=== PATIENT | male | born 1950 | race Caucasian/White ===

== ENCOUNTER 2016-05-15 11:00 | Emergency (ER) | payer OTHER ==
[~2016-05-15 11:00] MED LIST: ASPIRIN EC325 M2 PO; CELEBREX100 M1 PO; DOCUSATE SODIU100 M3 PO; GABAPENTIN300 M2 PO; HYDROMORPHONE HC2 M1 PO; LOSARTAN-HCTZ1 EAC1 PO; MIRALAX119 GM PO; PERCOCET 5-3251 EACH PO; RW; VALIUM10 M1 PO; VALIUM5 M2 PO; VITAMIN C1000 M4 PO; ZOFRAN ODT4 M1 SL
--- NOTE | 2016-05-15 11:31 | ED AMS/SEIZURE/WEAK/DIZZY ---
See Addendum History of Present Illness General Chief Complaint: General Adult Stated Complaint: SEIZURE Source: patient, EMS Exam Limitations: clinical condition Vital Signs & Intake/Output Vital Signs & Intake/Output ED Intake and Output 05/16 0000 05/15 1200 Intake Total 0 Output Total Balance 0 Intake, IV 0 Allergies Coded Allergies: NO KNOWN ALLERGIES (07/25/15) Reconcile Medications Ascorbic Acid (Vitamin C) 1,000 MG TABLET 1 TAB PO DAILY SUPPLEMENT (Reported ) Celecoxib (Celebrex) 100 MG CAPSULE 200 MG PO BID PAIN Diazepam (Valium) 10 MG TABLET 1 TAB PO Q8H PRN muscle spasms Docusate Sodium 100 MG CAPSULE 1 TAB PO BID STOOL SOFTENER Gabapentin 300 MG CAPSULE 1 TAB PO 7:30 AM, & 4:30 PM PAIN Gabapentin 300 MG CAPSULE 2 TAB PO QPM PAIN Hydromorphone HCl 2 MG TABLET 1-2 TAB PO Q4P PRN PAIN Losartan/Hydrochlorothiazide (Losartan-Hctz 50-12.5 MG Tab) 1 EACH TABLET 1 TAB PO DAILY BP (Reported) Polyethylene Glycol 3350 (Miralax) 17 GRAM/DOSE POWDER 1 PAC PO DAILY STOOL SOFTENER Triage Note: PT PRESENTS TO ER BY AMBULANCE FOR SEIZURE. PT POSTICTAL ON ARRIVAL IN ER. PER EMS PATIENT WAS SEATED IN PARKED CAR AND WAS WITNESSED TO HAVE A SEIZURE. PT WAS INTIALLY UNRESPONSIVE FOR EMS AND INCONTINENT OF URINE. PT BECAME MORE ALERT ENROUTE BUT STILL CONFUSED. PT HAS A HX OF AFIB AND SEIZURES. PT CHANGED INTO GOWN ON ARRIVAL Triage Nurses Notes Reviewed? yes HPI: This patient is a 66-year-old male the past medical history including atrial fibrillation and seizure disorder presented to the emergency department today brought in by ambulance after he was witnessed by a bystander to be having a seizure while seated in the rail car driver seat of his car, parked. EMS reported that the patient was found to be post ictal. He was incontinent of urine, but not stool. The patient did not remember the incident. The patient is currently a poor historian due to his current clinical state and also general noncompliance. The patient reported multiple times, "I would like to stand up and I would like to talk to my mother." The patient reported that he does not know what the last thing he remembers is. He does not remember getting up this morning. He does not remember getting his car. He does not remember having the seizure. The patient denied any headaches, visual changes, dizziness, lightheadedness, chest pain, difficulty breathing, abdominal pain, nausea, back pain, or any numbness or tingling in his extremities. Past History Travel History Traveled to [place] past 21 day No Medical History Any Pertinent Medical History? 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 No Review of Systems Review of Systems Constitutional: Reports: no symptoms. EENTM: Reports: no symptoms. Respiratory: Reports: no symptoms. Cardiovascular: Reports: no symptoms. GI: Reports: no symptoms. Genitourinary: Reports: see HPI. Musculoskeletal: Reports: no symptoms. Skin: Reports: no symptoms. Neurological/Psychological: Reports: see HPI. All Other Systems: Reviewed and Negative Physical Exam Physical Exam General Appearance: well developed/nourished, no apparent distress, alert, awake Comments: Well-developed well-nourished person in no acute distress HEENT: Normal EENT exam, head normocephalic/atraumatic. No bony deformity/step- off of the skull, no tenderness to palpation of the scalp, moist mucous membranes PERRLA bilaterally. EOMI bilaterally with no nystagmus Nose is atraumatic. No evidence of trauma to the tongue Neck: Supple, no lymphadenopathy, full range of motion Back: Normal inspection Cardiovascular: Tachycardic with a regular rhythm and no murmurs, rubs, or gallops. No carotid bruits Respiratory: Chest nontender. No respiratory distress. Breath sounds clear to auscultation bilaterally with no wheezes, rales, rhonchi Abdomen: Soft, nontender and nondistended with no rebound or guarding. No peritoneal signs Extremity: Normal and equal pulses. Neuro: Alert oriented x3, motor sensory normal, cranial nerves II through XII grossly intact. No aphasia. No facial droop. No unilateral weakness. No pronator drift. 5 out of 5 muscular strength in all extremities Skin: No appreciable rash on exposed skin, skin is warm and dry. Psych: Mood and affect is irritable, memory and judgment is poor Core Measures ACS in differential dx? Yes CVA/TIA Diagnosis: No Severe Sepsis Present: No Septic Shock Present: No Progress Differential Diagnosis: arrythmia, alcohol intoxication, anemia, benign positional vertigo, CVA/stroke, dehydration, drug intoxication, encephalitis, electrolyte imbalance, GI bleed, hypoglycemia, hypoxia, intracranial Hem., intracranial mass/tumor, multiple sclerosis, postural hypotension, presyncope, sepsis, seizure disorder, subarachnoid Hem., UTI/pyelo, vertebrobasilar insuff Plan of Care: Orders Procedure Date/time Status URINALYSIS 05/15 1132 Active TROPONIN LEVEL 05/15 1132 Active PROLACTIN 05/15 1132 Active COMPREHENSIVE METABOLIC PANEL 05/15 1132 Active CBC WITHOUT DIFFERENTIAL 05/15 1132 Active EKG 05/[address] HEAD WO IV CONTRAST 05/15 113 Active Initial ED EKG: patient refused Comments: 05/15/2016 11:44:40 AM: The patient is insisting to go home. He has gotten up and began to put on his clothes. The nurse explained to him that he stay for evaluation and due to his confusion, he is incompetent to make medical decisions at this time. The patient began to get agitated and raised his voice. The patient stated, "I am leaving this is not a fpc." The patient is refusing to let us speak to any of his family members and will not give us the numbers for his or his mother. Security is currently at the patient's bedside. I spoke to Dr. Menjivar about this. He stated that because the patient is not competent to make medical decisions due to his likely post ictal state, he should not be allowed to leave at this time. The patient's behavior is beginning to escalate. 05/15/2016 11:55:36 AM: Dr. Menjivar was at the patient's bedside [id number] evaluation. He had an extensive conversation with this patient. Ultimately recommending that this patient can go home. This patient signed a form stating that he was leaving AGAINST MEDICAL ADVICE. I explained this patient multiple times the importance of staying here in the emergency department for evaluation for likely seizure as he had urinary incontinence, a history of seizures, and is currently postictal. However, the patient is adamantly refusing to stay. Departure Departure Disposition: LEFT AGAINST MEDICAL ADVICE Condition: Stable Clinical Impression Primary Impression: Seizure Referrals: MAURICIO COATES,BILLIE Gallardo (PCP/Family) Additional Instructions: Please follow-up with your primary care physician. Return for any worsening symptoms or concerns. Departure Forms: Customer Survey General Discharge Information
[2016-05-15 11:33] VITALS: BP 148/103
[2016-09-11] MEDS ORDERED: LOSARTAN/HCTZ (14:49)
[2016-09-11] MEDS ORDERED: ASPIRIN325 M2 PO (14:49)
== END 2016-05-15 12:06 | disposition left against medical advice (07) ==
LOC: ERH 11:00
DX: R56.9 Unspecified convulsions (principal)

== ENCOUNTER 2016-09-19 02:16 | Inpatient (IN) | payer OTHER ==
--- NOTE | 2016-09-17 16:22 | History & Physical Pre-Op ---
General Information and HPI MD Statement: I have seen and personally examined JAY SWAIN and documented this H& P. The patient is a 66 year old M who presented with a patient stated chief complaint of [lower back pain and left leg pain and numbness]. Source of Information: patient Exam Limitations: no limitations History of Present Illness: 66-year-old right-handed gentleman who initially presented in July 2015 laminectomy of L2-3 using 344 right facet cyst and left partial medial facetectomy with bilateral foraminotomies for thigh pain He did well for 4 months ago developed severe radicular pain and diagnosed as having a herniated disc at L2-3. For symptoms of pain and weakness and cauda equina irritation. Did well for the worse and it was found to have a dural tear in March. His complaint is of excruciating mechanical back pain which is mostly resolved with the aid of a very tight lumbar brace. He is, complaints of numbness down his thigh and the anterior aspect of his calf on the left which turns to pain when he is standing up limiting his ambulation. He also has weakness of the foot and often trips because of left foot weakness. His pain is worse with activity bending sitting standing and walking and is improved with rest and medication. He complains of weakness numbness and tingling down his left leg. Allergies/Medications Allergies: Coded Allergies: NO KNOWN ALLERGIES (07/25/15) Home Med list Aspirin (Aspirin*) 325 MG TABLET 1 TAB PO DAILY PROPHO (Reported) [LOSARTAN/HCTZ] HTN (Reported) Compliance With Home Meds: UNKNOWN Past History Medical History Any Pertinent Medical History? 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 Home Who Do You Live With? spouse Services at Home None Primary Language: Greenlandic Smoking Status: Former Smoker ETOH Use: denies use Illicit Drug Use: denies illicit drug use Living Will? 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 unknown Name of POA/HCP: unknown Other Social History: Not relevant Functional Ability ADLs Independent: dressing, eating, toileting, bathing. Ambulation: cane IADLs Independent: shopping, housework, finances, food prep, telephone, transportation , medication admin. 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 EENTM: Denies: no symptoms. Cardiovascular: Denies: no symptoms. Respiratory: Denies: no symptoms. GI: Denies: no symptoms. Genitourinary: Denies: no symptoms. Musculoskeletal: Reports: see HPI. Skin: Denies: no symptoms. Neurological/Psychological: Reports: see HPI. Hematologic/Endocrine: Denies: no symptoms. Immunologic/Allergic: Denies: no symptoms. All Other Systems: Reviewed and Negative Colonoscopy Testing Status: Unknown if test ever done Comments Patient has had also physical therapy which failed to resolve symptoms Exam & Diagnostic Data Last 24 Hrs of Vital Signs/I&O he stands 6 foot 4 and weighs 220 pounds Physical Exam: He has a well-healed midline scar in his lumbar area. No clear-cut evidence of fluid collection under the skin. Given excellent range of forward bending slight limitation of hyperextension His gait moderately favors his left leg. He has difficulty keeping his knee locks in his foot does not completely clear floor. He is unable to stand on tiptoes or heels. He has a 0.4 inch difference in size of his thigh on the left compared to the right though it does look more atrophic. He has weakness of abduction adduction in iliopsoas and 3 over 5 on the left. His formal 5 quadriceps 4 over 5 extensor hallucis longus anterior tibialis on the left. He has decreased sensation from L2 to L5 on the left. The right leg appears to be very strongly toes are different. He has 1+ knee jerk bilaterally 2+ ankle jerks toes are downgoing. 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 S/P lumbar laminectomy 2. Seizure Copies To: VERONICA COATES,SRIDEVI Carpenter
[~2016-09-19] VITALS: Ht 185.4 cm; Wt 95.3 kg
[~2016-09-19 02:16] MED LIST changes: +ASPIRIN325 M2 PO; +LOSARTAN/HCTZ
--- NOTE | 2016-09-19 14:43 | Operative Report ---
Operative/Inv Procedure Report Surgery Date: 09/19/16 Name of Procedure: #1 bilateral revision hemilaminectomies L2 3 #2 neurolysis left side at L2-3 #3 exploration for CSF leaknegative #4 total facetectomy left side at L2-3 #5 preparation of space for fusion L2-3 #6 reconstitution of graft material #7 insertion of TL ORIF fuse cage L2-3 right side of #8 stealth registration #9 stealth guided pedicle crew screw insertion L2-L3 bilateral #10auto and allograft arthrodesis bilateral L2-3 Pre-Operative Diagnosis: Instability L2-3 Recurrent disc L2-3 left-sided Possible pseudomeningocele L2-3 Post-Operative Diagnosis: Instability L2-3 Estimated Blood Loss: 900cc Surgeon/Diet Clerk: Gulshan Harris M.D.(co-surgeon) Anesthesia: general endotracheal tube Monitors: Neurophysiology IV Fluids: D5 normal Implants: Medtronic fuse cage and pedicle screws of the SOLARA system Urine Output: Satisfactory Drains: 2 Rony Hallie Specimens: H&P Microbiology: None Tourniquet: None Complications: None Condition: Stable Operative Indication: 66-year-old man on his third post surgical intervention he had developed initially a synovial cyst for which she underwent a laminectomy following which she developed a herniated disc which required laminectomy at the end of which she was noted to have a possible CSF leak since that point in time he has had left leg pain and very definite mechanical back pain making him dependent on his brace Indication for surgery alternative risks and possible complications were discussed at length. The fear was that he had developed a moderate a pseudomeningocele as well as a recurrent disc at the L2-3 space Operative/Procedure Note Note: The patient was brought to the operating room intubated supine received 2 g of intravenous about ox was then placed prone on the Rony table his back was prepped and draped in usual sterile manner and infiltrated with marked Xylocaine and epinephrine Sharp dissection was carried L3 to previous incision down to the aponeurosis. A condyle both sides of the midline at the level of L1 and L4 dissection was carried down to the lamina of L2 was identified as well as the lamina of L4 and a 60 tedious takedown of the midline scar or then took place once the edges of the previous laminectomy had been identified as to 3 After identifying the medial edges of the facets or was left of the facets a complete facetectomy was then accomplished on the left-hand side after dissecting down onto the transverse processes of L2 and L3 this required a tedious neurolysis through the scarring until identification of the various nerve roots An extensive dissection was made at that point searching for a recurrent disc the disc space was entered and this was confirmed by C-arm films but after passing [place] 4, [place], and Kimberlyn curettes, no active recurrent disc was found just scarring The foramen they were widely open in the process of removing the remainder of the facet on that side A reaming lamina on the left was present and a complete removal of this lamina by laminectomy was then performed attention was then directed to the right hand side were likewise a remainder of lamina was present and a full revision hemilaminectomy accomplished removing the remainder of that lamina a wider opening of the facet was then performed on the right-hand side was removal of the remainder of ligamentum flavum and scar us a neurolysis was also accomplished on the right-hand side Once the space was identified and the vessels cauterized by Sridevi Harris MD proceeded to perform the fusion with an interbody F UAC cage at that level packed with autologous bone after packing the space with DBF graft on it then proceeded to registered and Stealth devices and place pedicle screws at L2 and L3 bilaterally after an O arm had obtained a map that could be conjoined with the Stealth device Following that the transverse processes and medial aspect and lateral aspect of the facets were drilled down and a combination of autologous bone and DBF was used to provide an arthrodesis in the lateral gutter extending from the process of 2-3 Following this to large Rony Hallie were left in the epidural space the muscle was closed in depth with 0-0 Dexon muscle and aponeurosis were closed with 0 Dexon subcutaneous tissue was closed with 2-0 Dexon subcuticular tissue with 3-0 Dexon and the skin closed with stainless steel margarito a full dressing was applied and the patient was in satisfactory condition upon removal to the recovery room Findings: Neurophysiological recordings remained stable throughout both sensory and motor It is to be noted that no recurrent disc was found. It is to be noted that there was no pseudomeningocele nose area evidence of dural tear Discharge Disposition: PACU Additional Comments: Recording stable CC: VERONICA COATES,SRIDEVI Carpenter
--- NOTE | 2016-09-19 15:06 | RADIOLOGY REPORT ---
EXAMINATION: XR LUMBOSACRAL SPINE CLINICAL INFORMATION: L2-L3 bilateral revision hemilaminectomy with C-arm and O-arm in OR COMPARISON: 07/30/2016 TECHNIQUE: Intraoperative C-arm and O-arm assistance was provided to Dr. Harris in the operating room during lumbar surgery. Multiple spot images were saved. Total fluoroscopic time 0.4 seconds and 10.83 seconds. FINDINGS: These nondiagnostic images demonstrate level localization in the lumbar spine and later hardware at the level of L2-L3. IMPRESSION: Intraoperative images during lumbar surgery. Please see procedure note for full details.
[2016-09-19 20:00] VITALS: BP 160/104
[2016-09-19 21:00] VITALS: BP 148/76
--- NOTE | 2016-09-19 23:06 | PN- Orthopedic ---
Subjective Subjective: POST-OP NOTE: Denies pain. Sitter requested for confusion. Denies nausea. No shortness of breath. No chest pains. Objective Vital Signs and I&Os Vital Signs Date Time Temp Pulse Resp B/P B/P Pulse O2 O2 Flow FiO2 Mean Ox Delivery Rate 09/19 2099 98.8 96 16 148/76 94 Room Air 09/20 1999 90 160/104 Physical Exam: General - alert. comfortable. no acute distress Lungs - clear bilaterally. no w/r/r Cardiac - s1s2 Abdomen - soft. nontender. Back - dressing c/d/i. RESHMA drains x 2 with serosang drainage - ovalle draining clear, yellow urine Extremities - warm bilaterally. no c/c/e. calves soft and nontender b/l. athrombics active b/l. 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 No Antibiotics Is Patient on Antibiotics? Yes If Yes: prophylaxis
[2016-09-19 23:07] VITALS: BP 138/78
--- NOTE | 2016-09-20 01:13 | NUR ---
PT EXREMELY AGITED AND LOUD REQUESTING TO GO TO THE BATHROOM TO VOID. EXPLAINED THAT HE HAS A BENTON IN PLACE. PT IGNORED STAFF AND GOT UP PULLING HIS OUT AND TUGGING AT HIS BENTON AND RESHMA DRAINS. PT PROCEEDED TO GET UP 3 MORE TIMES. BENTON WAS REMOVED AND URINAL WAS PROVIDED. WILL CONTINUE TO MONITOR. SITTER AT BEDSIDE
[2016-09-20 01:17] VITALS: BP 160/80
[2016-09-20 05:00] VITALS: BP 134/80
[2016-09-20] MEDS ORDERED: LOSARTAN-HCTZ1 EAC1 PO (07:40)
[2016-09-20 08:27] LABS: ABSOLUTE BASOPHIL COUNT 0 /CUMM (0.0-0.2); ABSOLUTE EOSINOPHIL COUNT 0 /CUMM (0.0-0.7); ABSOLUTE GRANULOCYTE CT 14.3 /CUMM (1.4-6.5); ABSOLUTE LYMPH COUNT 1.1 /CUMM (1.2-3.4); ABSOLUTE MONOCYTE COUNT 1.2 /CUMM (0.10-0.60); BASOPHIL % 0 % (0.0-2.0); EOSINOPHIL % 0 % (0-5); GRANULOCYTE % 86.4 % (42.2-75.2); HEMATOCRIT 38.9 % (42-52); MEAN CORPUSCULAR HGB CONC 33.4 G/DL (33.0-37.0); MEAN CORPUSCULAR VOLUME 92.9 FL (80.0-94.0); PLATELET COUNT 126 /CUMM (130-400); RBC DISTRIBUTION WIDTH 15.1 % (11.5-14.5); RED BLOOD CELL CT 4.19 /CUMM (4.70-6.10)
[2016-09-20 09:19] LABS: WHITE BLOOD CELL COUNT 16.5 /CUMM (4.8-10.8)
--- NOTE | 2016-09-20 11:02 | Admission Core Measures ---
Admission Lab Results I reviewed the following labs: Laboratory Tests 09/20 0600 Chemistry Sodium (137 - 145 mmol/L) 138 Potassium (3.5 - 5.1 mmol/L) 4.2 Chloride (98 - 107 mmol/L) 102 Carbon Dioxide (22 - 30 mmol/L) 28 Anion Gap (5 - 16) 9 BUN (9 - 20 mg/dL) 11 Creatinine (0.7 - 1.2 mg/dL) 0.7 Estimated GFR (>60 ml/min) > 60 BUN/Creatinine Ratio (7 - 25 %) 15.7 Hematology CBC w Diff NO MAN DIFF REQ WBC (4.8 - 10.8 /CUMM) 16.5 H RBC (4.70 - 6.10 /CUMM) 4.19 L Hgb (14.0 - 18.0 G/DL) 13.0 L Hct (42 - 52 %) 38.9 L MCV (80.0 - 94.0 FL) 92.9 MCH (27.0 - 31.0 PG) 31.0 RDW (11.5 - 14.5 %) 15.1 H Plt Count (130 - 400 /CUMM) 126 L MPV (7.4 - 10.4 FL) 12.0 H Gran % (42.2 - 75.2 %) 86.4 H Lymphocytes % (20.5 - 51.1 %) 6.5 L Monocytes % (1.7 - 9.3 %) 7.1 Eosinophils % (0 - 5 %) 0 Basophils % (0.0 - 2.0 %) 0 L Absolute Granulocytes (1.4 - 6.5 /CUMM) 14.3 H Absolute Lymphocytes (1.2 - 3.4 /CUMM) 1.1 L Absolute Monocytes (0.10 - 0.60 /CUMM) 1.2 H Absolute Eosinophils (0.0 - 0.7 /CUMM) 0 Absolute Basophils (0.0 - 0.2 /CUMM) 0 PUBS MCHC (33.0 - 37.0 G/DL) 33.4 Admission Meds I reviewed the following Meds: Current Medications Sig/Arturo Start time Last Medication Dose Stop Time Status Admin Dextrose/Sodium 1,000 ML .[id number] 09/19 1815 AC 09/20 Chloride 0606 (D5W-1/2 Normal Saline 1000ML) Diazepam 5 MG TID PRN 09/20 0915 AC 09/20 (Valium) 0908 Hydrochlorothiazide 12.5 MG DAILY 09/20 1000 AC 09/20 (Hydrodiuril) 0910 Hydromorphone HCl 1 MG Q2-3 HRS NEEDED.. 09/20 0900 AC 09/20 (Dilaudid) 1004 Ketorolac 30 MG BID 09/20 1000 AC 09/20 Tromethamine 09/21 1001 0911 (Toradol) Losartan Potassium 50 MG DAILY 09/20 1000 AC 09/20 (Cozaar) 0911 Ondansetron HCl 4 MG Q8P PRN 09/19 1815 AC (Zofran) Oxycodone/ 1 TAB Q4P PRN 09/20 09 AC Acetaminophen (Percocet) Oxycodone/ 2 TAB Q4P PRN 09/20 0900 AC 09/20 Acetaminophen 0909 (Percocet) Acute Coronary Syndrome Inclusion Criteria ACS Diagnosis No Inpatient Core Measures LDL Reminder: If No, please order W/I first 24hr of stay Congestive Heart Failure Inclusion Criteria CHF Diagnosis No Cerebrovascular accident Inclusion Criteria CVA/TIA Diagnosis No Inpatient Core Measures Bedside Swallow Eval Reminder: If BSE failed, place ST order Antithrombotic Reminder: Order Antithrombotic Medication by end of day 2 Antithrombotic Reminder: Document Reason Antithrombotic Not ordered by end of day 2 AFIB/Flutter Reminder: If Present, add to problem list AFIB/Flutter Reminder: Order Anticoag Medication for pts with AFIB/Flutter Atherosclerosis Reminder: If Present, add to problem list LDL Reminder: If No, please order W/I first 24hr of stay PT Order Reminder: If No, please order Venous thromboembolism Inpatient Core Measures VTE Risk Factors: Age > 40, Surgery No [facility] VTE prophylaxis d/t No contraindications No VTE Pharm Prophylaxis d/t No contraindications Inclusion Criteria - Per Current guidelines, there needs to be overlap - treatment for the first 5 days of Warfarin therapy. - Parenteral Anticoagulation (IV or SC) needs to be - given along with Warfarin therapy. VTE Diagnosis No VTE Type NONE VTE Confirmed by (Test) NONE Problem List As ranked by this Provider includes Assessment & Plan 1. S/P lumbar laminectomy HOME MEDS Home Med List Aspirin (Aspirin*) 325 MG TABLET 1 TAB PO DAILY PROPHO (Reported) Losartan/Hydrochlorothiazide (Losartan-Hctz 50-12.5 MG Tab) 50 MG-12.5 MG TABLET 1 TAB PO DAILY HTN (Reported)
--- NOTE | 2016-09-20 11:07 | PN- Orthopedic ---
Subjective Subjective: pod#1 lumbar laminectomy no major issues ovenight denies cp, sob, no n+v with diet voiding independently Objective Vital Signs and I&Os Vital Signs Date Time Temp Pulse Resp B/P B/P Pulse O2 O2 Flow FiO2 Mean Ox Delivery Rate / 0911 103 170/100 06/ 0500 99.4 113 20 134/80 99 Room Air 09/20 0117 99.3 103 20 160/80 97 Room Air 09/19 2307 98.2 87 14 138/78 96 Room Air / 2100 98.8 96 16 148/76 94 Room Air / 2000 90 160/104 Intake & Output 09/20 1600 09/20 0800 09/20 0000 09/19 1600 09/19 0800 09/19 0000 Intake Total 600 225 Output Total 1340 2650 Balance -740 -2425 Intake, IV 600 225 Output, 90 50 Drainage Output, Urine 1250 2600 Physical Exam: cv; rrr lungs: clear abd: soft, +bs ext: 4/5 left le ehl/dorsiflexion distal sensory intact dp/pt pulses intact collins: moderate sanguinous output Assessment/Plan Assessment/Plan ortho stable plan d/c balancing machine set up worker cont iv abx until drain d/c oob/ambulate w/ or w/o brace home d/c planning Core Measures/Miscellaneous Venous Thromboembolism VTE Risk Factors: Age > 40, Surgery VTE Contraindications: No Contraindications VTE Diagnosis: No VTE Type: NONE VTE Confirmed by (Test): NONE Beta Leonard Is Beta Leonard a Home Med? No Antibiotics Is Patient on Antibiotics? Yes If Yes: prophylaxis
--- NOTE | 2016-09-20 12:22 | PN- Neurosurgical ---
Surgical Brief Attending Note Brief Attending Note: POD#1 avss expected LBP drains functioning well resolution of preop sciatica able to stand on left leg stronger foot doing well increase PT
[2016-09-20 13:52] VITALS: BP 140/80
--- NOTE | 2016-09-20 14:35 | NUR ---
PT NO LONGER CONFUSED, AO, RA, OOB INDEPENDENTLY, NO LONGER NEEDS PATIENT SAFETY MONITOR. PA POP AWARE, PSM D/C. PT ASLEEP, CALL LINARES WITHIN REACH.
[2016-09-20 22:03] VITALS: BP 142/82
[2016-09-21 06:26] VITALS: BP 120/70
--- NOTE | 2016-09-21 09:07 | PN- Orthopedic ---
Subjective Subjective: Walking in fatima. LLE pain persists, but improved. No other complaints. attending here this am, removed drains. Objective Vital Signs and I&Os Vital Signs Date Time Temp Pulse Resp B/P B/P Pulse O2 O2 Flow FiO2 Mean Ox Delivery Rate 09/21 0626 98.9 89 20 120/70 97 Room Air 09/20 2203 99.0 79 18 142/82 97 Room Air 09/20 1352 98.7 100 18 140/80 97 Room Air 09/20 0911 103 170/100 Intake & Output 09/21 1600 09/21 0800 09/21 0000 09/20 1600 09/20 0809/20 0000 Intake Total 240 120 960 600 225 Output Total 360 834 480 5621 2650 Balance -120 5 820 -740 -2425 Intake, IV 600 600 225 Intake, Oral 240 120 360 Output, 60 115 140 90 50 Drainage Output, Urine 300 1250 2600 Physical Exam: General - NAD Lungs - CTAB Cardiac - s1s2 RRR Back - dressing c/d/i. RESHMA drains out. Extremities - no edema, calves soft nt bl Current Medications: Current Medications Sig/Arturo Start time Last Medication Dose Route Stop Time Status Admin Cefazolin Sodium 2 GM IQ8 09/20 1929 DC N/A 1 UNIT IV Cefazolin Sodium 2 GM Q8H 09/20 1929 AC 09/21 N/A 1 UNIT IV 0324 Dextrose/Sodium 1,000 ML .[id number] 09/19 1815 DC 09/20 Chloride IV 06 Diazepam 5 MG TID PRN 09/20 0915 AC 09/20 PO 0908 Hydrochlorothiazide 12.5 MG DAILY 09/20 1000 AC 09/20 PO 0910 Hydromorphone HCl 1 MG Q2-3 HRS NEEDED.. 09/20 09 AC 09/21 IV 0634 Ketorolac 30 MG BID 09/20 1000 AC 09/20 Tromethamine IV 09/21 1001 2142 Losartan Potassium 50 MG DAILY 09/20 1000 AC 09/20 PO 0911 Ondansetron HCl 4 MG Q8P PRN 09/19 1815 AC IV Oxycodone/ 1 TAB Q4P PRN 09/20 09 AC Acetaminophen PO Oxycodone/ 2 TAB Q4P PRN 09/20 09 AC 09/21 Acetaminophen PO 0800 Results Last 48 Hours of Labs: Laboratory Tests 06/10 0600 Chemistry Sodium (137 - 145 mmol/L) 138 Potassium (3.5 - 5.1 mmol/L) 4.2 Chloride (98 - 107 mmol/L) 102 Carbon Dioxide (22 - 30 mmol/L) 28 Anion Gap (5 - 16) 9 BUN (9 - 20 mg/dL) 11 Creatinine (0.7 - 1.2 mg/dL) 0.7 Estimated GFR (>60 ml/min) > 60 BUN/Creatinine Ratio (7 - 25 %) 15.7 Hematology CBC w Diff NO MAN DIFF REQ WBC (4.8 - 10.8 /CUMM) 16.5 H RBC (4.70 - 6.10 /CUMM) 4.19 L Hgb (14.0 - 18.0 G/DL) 13.0 L Hct (42 - 52 %) 38.9 L MCV (80.0 - 94.0 FL) 92.9 MCH (27.0 - 31.0 PG) 31.0 RDW (11.5 - 14.5 %) 15.1 H Plt Count (130 - 400 /CUMM) 126 L MPV (7.4 - 10.4 FL) 12.0 H Gran % (42.2 - 75.2 %) 86.4 H Lymphocytes % (20.5 - 51.1 %) 6.5 L Monocytes % (1.7 - 9.3 %) 7.1 Eosinophils % (0 - 5 %) 0 Basophils % (0.0 - 2.0 %) 0 L Absolute Granulocytes (1.4 - 6.5 /CUMM) 14.3 H Absolute Lymphocytes (1.2 - 3.4 /CUMM) 1.1 L Absolute Monocytes (0.10 - 0.60 /CUMM) 1.2 H Absolute Eosinophils (0.0 - 0.7 /CUMM) 0 Absolute Basophils (0.0 - 0.2 /CUMM) 0 PUBS MCHC (33.0 - 37.0 G/DL) 33.4 Assessment/Plan Assessment/Plan A: 66M POD2 sp L2-3 lami/fusion revision, persistant pain but improving. P: reg diet pain meds as ordered Dc ancef as JPs are out. OOB, ambulate, DVT ppx Dc planning Core Measures/Miscellaneous Venous Thromboembolism VTE Risk Factors: Age > 40, Surgery VTE Contraindications: No Contraindications VTE Diagnosis: No VTE Type: NONE VTE Confirmed by (Test): NONE Beta Leonard Is Beta Leonard a Home Med? No Antibiotics Is Patient on Antibiotics? Yes If Yes: prophylaxis
--- NOTE | 2016-09-21 11:37 | Patient Discharge Instructions ---
Discharge Instructions General Discharge Information You were seen/treated for: Instability L2-3 Recurrent disc L2-3 left-sided Possible pseudomeningocele L2-3 You had these procedures: #1 bilateral revision hemilaminectomies L2 3 #2 neurolysis left side at L2-3 #3 exploration for CSF leaknegative #4 total facetectomy left side at L2-3 #5 preparation of space for fusion L2-3 #6 reconstitution of graft material #7 insertion of TL ORIF fuse cage L2-3 right side of #8 stealth registration #9 stealth guided pedicle crew screw insertion L2-L3 bilateral #10auto and allograft arthrodesis bilateral L2-3 Watch for these problems: wounds drainage/redness, worsening pain, motor or sensory changes in extremities No bath, but you may shower: Yes Other wound care: Keep wound clean and dry. No topical medications. May apply clean dry gauze dressing as needed. Diet Continue normal diet: Yes Recommended Diet: Regular Activity Activity Self Limited: Yes Activity Limited to: Weight bear as tolerated Other activity limits: Use assitive devices as needed Acute Coronary Syndrome Inclusion Criteria At DC or during hospital stay patient has or had the following: ACS DIAGNOSIS No Discharge Core Measures Meds if any: Prescribed or Continued at Discharge Meds if any: NOT Prescribed or Continued at Discharge Congestive Heart Failure Inclusion Criteria At DC or during hospital stay patient has or had the following: CHF DIAGNOSIS No Discharge Core Measures Meds if any: Prescribed or Continued at Discharge Meds if any: NOT Prescribed or Continued at Discharge Cerebrovascular accident Inclusion Criteria At DC or during hospital stay patient has or had the following: CVA/TIA Diagnosis No Discharge Core Measures Meds if any: Prescribed or Continued at Discharge Meds if any: NOT Prescribed or Continued at Discharge Venous thromboembolism Inclusion Criteria VTE Diagnosis No VTE Type NONE VTE Confirmed by (Test) NONE Discharge Core Measures - Per Current guidelines, there needs to be overlap - treatment for the first 5 days of Warfarin therapy. - If discharged on Warfarin prior to 5 days of - overlap therapy, the patient will need to be - assessed for post discharge needs including - *Post discharge parental anticoagulation - *Warfarin and/or parental anticoagulation education - *Follow up date to check INR post discharge At least 5 days overlap therapy as Inpatient No Meds if any: Prescribed or Continued at Discharge Note: Overlap Therapy is Warfarin and Anticoagulant Meds if any: NOT Prescribed or Continued at Discharge
--- NOTE | 2016-09-21 11:46 | Surgical Discharge Summary ---
Visit Information Visit Dates Admission Date: 09/19/16 Discharge Date: 09/22/16 History of Present Illness Chief Complaint: 66yo M presented 09/19/16 for elective revision of L2-3 laminectomy/fusion. His initial procedure was in July 2015. Medical History Any Pertinent Medical History? 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 Home Services at Home: None What is Your Primary Language? Swedish ETOH Use: denies use Other Addictive Behavior: Not relevant Review of Systems: see H&P Hospital Course Course Attending Physician: VERONICA COATES,SRIDEVI Carpenter Primary Care Physician: MAURICIO COATES,BILLIE Gallardo Hospital Course: Elective surgery on 09/19/16. procedure included: #1 bilateral revision hemilaminectomies L2 3 #2 neurolysis left side at L2-3 #3 exploration for CSF leaknegative #4 total facetectomy left side at L2-3 #5 preparation of space for fusion L2-3 #6 reconstitution of graft material #7 insertion of TL ORIF fuse cage L2-3 right side of #8 stealth registration #9 stealth guided pedicle crew screw insertion L2-L3 bilateral #10auto and allograft arthrodesis bilateral L2-3 Procedure was performed by Drs. Harris and Lisa without complications. Postoperatively, patient was evaluated and treated by PT. At time of discharge, pain is controlled with PO pain meds, vital signs are stable, and he is tolerating regular diet. Allergies: Coded Allergies: NO KNOWN ALLERGIES (07/25/15) Significant Procedures: See operative report Disposition Summary Disposition Principal Diagnosis: Instability L2-3 Additional Diagnosis: same, s/p bilateral revision hemilaminectomies L2-3, neurolysis left side at L2- 3, exploration for CSF leaknegative, total facetectomy left side at L2-3, preparation of space for fusion L2-3, reconstitution of graft material, insertion of TL ORIF fuse cage L2-3 right side, stealth registration, stealth guided pedicle crew screw insertion L2-L3 bilateral, auto and allograft arthrodesis bilateral L2-3 Discharge Disposition: home health services Discharge Instructions General Discharge Information Code Status: Full Code Patient's Diet: regular Patient's Activity: as tolerated, use assistive equipment as needed Follow-Up Instructions/Appts: Call Dr. Harris's office to be seen 1-2 weeks from date of surgery. Medications at Discharge Discharge Medications: Stop taking the following medications: Aspirin (Aspirin*) 325 MG TABLET ORAL DAILY Continue taking these medications: Losartan/Hydrochlorothiazide (Losartan-Hctz 50-12.5 MG Tab) 50 MG-12.5 MG TABLET 1 Tablet ORAL DAILY Qty = 90 Start taking the following new medications: Hydromorphone HCl (Dilaudid) 2 MG TABLET 1-2 Tablet ORAL EVERY 8 HOURS NEEDED as needed for PAIN Qty = 20 No Refills Oxycodone HCl/Acetaminophen (Percocet 5-325 MG Tablet) 5 MG-325 MG TABLET 1-2 Tablet ORAL EVERY 4 HOURS NEEDED as needed for PAIN Qty = 60 No Refills Diazepam (Valium) 5 MG TABLET 1-2 Tablet ORAL EVERY 8 HOURS NEEDED as needed for SPASMS Qty = 10 No Refills Celecoxib (Celebrex) 200 MG CAPSULE 1 Capsule ORAL TWICE DAILY Qty = 30 No Refills
[2016-09-21 18:30] VITALS: BP 178/100
--- NOTE | 2016-09-21 19:00 | NUR ---
I HEARD A LOUD CRASH COMING FROM ROOM 221. ON ARRIVING TO THE ROOM PATIENT WAS SEEN ON FLOOR CLOSE TO THE BATHROOM. WHEN QUESTIONED PATIENT STATED HE WENT TO THE BATHROOM AND CAME BACK. TRIPPED AND FELL. HE DENIES HITTING HIS HEAD. PATIENT ALERT AND APPEARS DISORIENTATED DURING ASSESSMENT. RAPID RESPONSE TEAM CALLED. BP178/100, HR 110. PATIENT S/P LUMBAR GALLARDO L1 L2. PA CALLED. PATIENT WAS HELPED TO BED. NO OBVIOUS INJURIES NOTED. EKG ORDERED BY PA AND WAS DONE SHOWS SINUS TACH. PATIENT HAS HX OF PAF. LABS ALSO ORDERED. WILL MONITOR.
--- NOTE | 2016-09-21 19:10 | Event Note ---
Event Note Event Note: Rapid response called by floor RN. Pt was OOB in his room and fell. He states he tripped over his feet and fell, may have been "a little dizzy", but denies injury, denies hitting head, denies LOC, denies SOB/CP/palpations at the time. Received 2 percocets approx 1hr prior to this event. On my arrival, he was sitting on floor at side of bed. Able to stand and get back into bed be self, reluctant to accept help. Has been OOB by self all day today with some unsteady gait, otherwise OK. Per pt, "I just tripped- I am fine". VS at time of event: HR 110, BP 178/100, FS 99. EKG: irregular rate, 106, ?afib (read as sinus tach). 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 Sees principal clerk typist Dr. Pyle regularly, and per preop note- BB, PPM, and AV hali ablation have all been deferred. Current EKG similar (other than faster rate) to preop EKG in chart done by cardiolgy outpt preop. LABS: lytes, cbc, trop pdg GEN: NAD. awake, alert CARD: s1s2 irreg irreg, tachy at 105 PULM: CTAB Back/extrem: dressing dc'ed, +serosang staining, staple line CDI, slight serosang drainage from left Gee site (removed this am), ttp at incision, clean gauze reapplied. gross senation intact bl feet, palp PT/DT bl, calves soft nt bl, gross plantar/dorsiflexion intact bl A: POD2 sp lum lami/fusion revision, pmhx afib (on no meds) and SSS, with tachy but stable EKG, sp fall likely related to unsteady gait. P: -fu labs -awaiting call back from attending. Will discuss ?need for cadiology input, though appears to be chronic. -bed alarm. Pt aware he must call for assistance prior to getting out of bed, and use assistive devices.
[2016-09-21 20:28] VITALS: BP 144/82
[2016-09-21 20:35] LABS: ABSOLUTE BASOPHIL COUNT 0 /CUMM (0.0-0.2); ABSOLUTE EOSINOPHIL COUNT 0.1 /CUMM (0.0-0.7); ABSOLUTE GRANULOCYTE CT 9.3 /CUMM (1.4-6.5); ABSOLUTE LYMPH COUNT 1.2 /CUMM (1.2-3.4); ABSOLUTE MONOCYTE COUNT 1.1 /CUMM (0.10-0.60); BASOPHIL % 0.1 % (0.0-2.0); EOSINOPHIL % 0.9 % (0-5); GRANULOCYTE % 79.7 % (42.2-75.2); HEMATOCRIT 38.8 % (42-52); MEAN CORPUSCULAR HGB 30.7 PG (27.0-31.0); MEAN CORPUSCULAR HGB CONC 33.4 G/DL (33.0-37.0); MEAN CORPUSCULAR VOLUME 91.9 FL (80.0-94.0); MEAN PLATELET VOLUME 10.8 FL (7.4-10.4); PLATELET COUNT 124 /CUMM (130-400); RBC DISTRIBUTION WIDTH 15.3 % (11.5-14.5); RED BLOOD CELL CT 4.22 /CUMM (4.70-6.10); WHITE BLOOD CELL COUNT 11.7 /CUMM (4.8-10.8)
--- NOTE | 2016-09-21 22:12 | NUR ---
PT REQUESTING PAIN MEDS FOR 8/10 TINGLING LLE PAIN. PT DID FALL EARLIER THIS EVENING, SO THERE WAS CONCERN WITH GIVING MORE NARCOTICS. PER SURGICAL HARIS FOWLER, OKAY TO GIVE PERCOCET.
[2016-09-21 22:14] VITALS: BP 126/70
--- NOTE | 2016-09-21 23:34 | NUR ---
SHIFT NOTE 7P-11P. PT IS AOX3. PT UPSET THAT "YOURE MAKING SUCH A BIG DEAL OUT OF MY FALL". DENIES ANY DIZZINESS. REPORTS TINGLING LLE PAIN, WHICH IS NOT NEW. FALL PRECAUTIONS IN PLACE, REMINDED PT TO CALL FOR ASSISTANCE TO GET OOB, HE HAS UNSTEADY/WEAK GAIT. PT HAS CALLED APPROPRIATELY. DRESSINGS TO LOW BACK ARE CDI.
[2016-09-22 06:39] VITALS: BP 146/70
--- NOTE | 2016-09-22 07:01 | Operative Report ---
Operative/Inv Procedure Report Surgery Date: 09/19/16 Name of Procedure: 1) L2 Revision Bilateral Decompressive Hemilaminectomies, L2-L3 Revision Bilateral (Right Subtotal And Left Complete) Facetectomies, Revision Bilateral ( Right Extensive And Left Complete Unroofing) Foraminotomies And Revision Bilateral (Right Decompressive And Subtotal Decorticating As Well As Left Intracanal Fragment) Discectomy (Lisa/Veronica) 2) L2/L2-L3 Left Spinal Canal Dorsal, Dorsolateral, Lateral Canal, Lateral Recess, Ventrolateral And Ventral Paracentral Epidural Neurolysis (Lisa/ Veronica) 3) L2-L3 Multicolumn (Anterior Column Interbody And Posterobilateral Column Osteoarticular Element Intertransverse Process) Instrumented Fusion Using Morselized Local Autograft Augmented With Allograft Substitute Osteopromotive Material (Veronica-Lisa Co-Surgeons) 4) L2-L3 Implantation Of Right Interbody Cage Instrumentation (Veronica/ Lisa) 5) L2-L3 Implantation Of Posterobilateral Mcltrqp-[id number] Non-Segmental Instrumentation (Veronica/Lisa) 6) L2-L3 Stealth Frameless Stereotactic Computer-Assisted Spinal Navigational Placement Of Posterobilateral Pedicle Screw Instrumentation ( Veronica) 7) Preparation And Implantation Of L2-L3 Interbody And Posterobilateral Intertransverse Process Nonstructural Allograft Subtitute Osteopromotive Material (Veronica) 8) Palms, Preparation And Implantation Of L2-L3 Interbody And Posterobilateral Intertransverse Process Morselized Local Autograft (Veronica) Post-Operative Diagnosis: Same as preoperative diagnosis list with the addition of: Intraoperative Surgically Treated Diagnoses: 1) L2-L3 Intraoperative (Post-Decompression And Pre-Instrumentation) Significant Angular And Moderate Translational Multiplanar Instability With Axial Disk Space Collapse Associated With Severe Increase In Transpedicular Foraminal Narrowing Requiring Intraoperative Instrumentation For Acute Stabilization, Transpedicular Distraction And Foraminal Height Jainism As Well As Optimized Alignment, Fusion Potential And Overall Outcome 2) L2-L3 Dense Adherent Epidrual Fibrosis Requiring Neurolysis But No Pseudomeningocele Or Persistent Spinal Fluid Leak Identified Intraoperative And Postoperative Diagnoses Relevant To Postoperative Care: 1) L2-L3 Potential Increased Postoperative (Post-Decompression, Post- Instrumentation And Pre-Arthrodesis) Microinstability Even With Multicolumn Instrumentation Indicating Early Postoperative Activity Limitation And Circumferential Lumbar Compression Orthosis Use For Optimized Symptom Control, Stabilization, Fusion, Postoperative Function And Overall Outcome 2) Expected Acute Postoperative Lumbar Region Pain Requiring Postoperative Intravenous Narcotic Analgesic Pain Medication And Inpatient Nursing Observation Following Standard And Uncomplicated But Extensive Revision Lumbar Decompression And New Instrumented Fusion 3) Expected Acute Postoperative Lumbar Region Muscular Spasm Requiring Postoperative Muscle Relaxant Medication And Inpatient Nursing Observation Following Above Procedure 4) L2-L3 Acute Revision Lumbar Posterobilateral Osseous Decompression Postprocedural Status 5) L2-L3 Lumbar Spine Early Postprocedural Instrumented Arthrodesis Status 6) Physiologically Limited Bone Healing Potential Due To The Revision Nature Of The Patient's Procedure, And Partial Augmentation Of Fusion Mass With Allograft Substitute Osteopromotive Material As Well As Patient's Desire And Reasonable Potential To Return To Vigorous Function As Early As Possible Indicating Use Of An External Pulsed Electromagnetic Field Stimulation Device To Optimize And Potentially Accelerate Osseous Fusion Formation Estimated Blood Loss: 800 cc estimated blood loss with 445 cc cell saver return Surgeon/Shell Freezing Machine Operator: SRIDEVI MARTIN MD - Primary Admitting Orthopaedic Co-Surgeon KAYLYNN GONZALEZ MD - Primary Consulting Neurological Co-Surgeon Surgical Providers: Regarding Orthopaedic Spine Portion Of Procedure Dictated Here: Sridevi Martin M.D. - Orthopaedic Spine Surgeon (Co-Surgeon/Primary Admitting Surgeon) Kaylynn Gonzalez M.D. - Neurosurgeon (Co-Surgeon/Shell Freezing Machine Operator Surgeon) See Neurosurgical Operative Report Regarding Surgical Provider Designation For Neurosurgical Spine Portion Of Procedure Anesthesia: general endotracheal tube Monitors: Standard general anesthesia and other perioperative monitoring was performed per anesthesia protocols. Standard Intraoperative EMG, SSEP and MEP electrophysiological monitoring ( NeuroAlert) Refer to anesthesia and intraoperative electrophysiological monitoring records for details. IV Fluids: Standard anesthesia fluid management was performed without requirement for additional or emergent fluid resuscitation. Refer to anesthesia records for details. Implants: Implants Placed: Posterolateral Lumbar Region Interbody Implants: Atlantium Sofamor Danek FUSE Titanium Posterolateral Interbody Cage Implant: 1 x 10 mm Height x 9 mm Width x 24.5 mm Depth x 8 Degree Lordosis On The Right At L2-L3 Posterobilateral Lumbar Region Transpedicular Trans-Segmental Implants: Visual [employer] VDP System Posterobilateral Transpedicular Transvertebral Athhesq-Ichfl-Pcn Construct: 2 x 6.5 mm Diameter x 50 mm Length Dual Thread Pitch Pedicle Screws One On Each Side At L2 2 x 6.5 mm Diameter x 50 mm Length Dual Thread Pitch Pedicle Screws One On Each Side At L3 1 x 4.75 mm Diameter x 40 mm Length Goree-Chrome Huan On The Right At L2-L3 1 x 4.75 mm Diameter x 35 mm Length Goree-Chrome Huan On The Left At L2-L3 Graft Placed: Autograft Placed: Morselized Locally Harvested Autograft Harvested From: Bilateral L2 Revision Hemilaminectomies And Bilateral L2-L3 Revision Facetectomies Placed At L2-L3 In Anterior And Posterobilateral Columns In Central Chamber Of Interbody Cage In Disk Space Anterior To And Surrounding Interbody Cage In Bilateral Intertransverse Posterolateral Spaces Allograft Placed: Nonstructural Processed Allograft Substitute Osteopromotive Material Placed: You[employer] Cloud DBF (2 x 6 cc Containers = 12 cc Total) Placed: In Intervertebral Disk Space Anterior And Adjacent To Cage At L2-L3 Placed In The Posterobilateral Intertransverse Spaces At L2- L3 Overlying Deep Autograft Layer Urine Output: Refer to anesthesia records for details. Drains: Large bore (15 Swazi) subfascial RESHMA drains x 2 to medium bulb suction reservoir. Fenestrated portions of drain tubes placed in each posterolateral intertransverse space (lateral gutter) with unfenestrated portion through deep muscle, fascia, subcutaneous tissue, and skin of bilateral inferolateral aspect of surgical site waggoner without suture fixation. Specimens: Removed lumbar disk fragments sent to pathology for analysis per hospital protocol Complications: None Condition: Initial Preoperative Condition: The patients condition was stable to the operating room without vital sign, hemodynamic, cardiopulmonary or other organ system abnormality and without new neurovascular or musculoskeletal functional deficit compared to stable but significant baseline of preoperative proximal and distal bilateral (left greater than right) lower extremity motor, sensory and ambulatory deficits as noted on orthopaedic spine surgical office, neurosurgical consultation, preoperative clearance and final admission history and physical evaluations. The patient was cleared preoperatively as optimized for surgery by his primary care physician and all requested consulting specialty services prior to admission. There were no significant adverse changes evident in the patients condition between the clearance admission history & physical evaluations and the immediate preoperative assessment. Intraoperative Condition: The patient was stable throughout the procedure without vital sign, cardiopulmonary or other monitoring changes, lability, instability or abnormality. His initial baseline neurophysiological monitoring signals ( recorded shortly after general anesthetic induction and prior to incision) showed significant left greater than right abnormalities in both motor and sensory amplitudes and latencies consistent with the preoperative deficits documented on electromyography. The electrophysiological recordings throughout the procedure and final assessment at the end of the case remained at the baseline established by the above noted initial recordings with no significant or prolonged changes noted. By the end of the procedure there were some subtle but consistent left sided signal improvements reported which began at approximately the time of interbody cage placement (and associated foraminal distraction) and progressed steadily throughout the remainder of the procedure. Final Postoperative Condition: The patient was extubated and stable to the recovery room with no new deficit or adverse change compared to stable baseline preoperative neurological and musculoskeletal assessment reported above based on limited evaluation during initial recovery from anesthesia. Initial assessment was limited by sedation but demonstrated grossly normal spontaneous motion and limted motion to command in all extremities. Once fully awake upon early recovery from anesthesia, he was able to demonstrate grossly normal motion and function at his preoperative baseline level to command in both upper and distal lower extremities. The biateral distal lower extremity preoperative deficits were slightly improved based on early postoperative evaluation. Proximal motor deficits could not be assessed at this early timepoint. There was no swelling, erythema, tenderness, pain with either active or passive motion or any other symptom or finding to suggest a concerning process involving the superficial or deep cutaneous, subcutaneous, muscular, vascular or other tissues related to the immobilization or localized pressure of prolonged prone positioning required for surgery. His postoperative pain was adequately controlled with standard IV narcotic dosing during initial recovery. Operative Indication: Jose Gillespie is a 66 year old generally healthy and active white male with significant complex recent lumbar surgical history described below who presents today for L2 revision bilateral hemilaminectomies, L2-L3 epidural neurolysis and decompression followed by L2-L3 new multicolumn instrumented fusion to address L2-L3 large recurrent disk herniation, severe degenerative disk disease associated with instability, asymmetrical disk space collapse, foraminal stenosis and epidural fibrosis resulting in neural element compression and tethering causing bilateral (left greater than right) upper and mid-lumbar radicular motor deficit, resting and claudicating leg pain, numbness, lower extremity dyscoordination and significant gait abnormality and additional functional deficits. His initial lumbar condition began more than a year ago with degenerative disk collapse, foraminal stenosis and facet cysts (MRI, 2015, [facility]) causing pain and progressive bilateral proximal lower extremity weakness which did not improve with comprehensive conservative management. He responded very well to L3-L4 bilateral decompression with cystectomy and L2-L3 left decompression with cystectomy and discectomy (2015, [facility]). After nearly fully recovering and returning to most normal and many vigorous activities he herniated a large L2-L3 disk fragment (MRI, 2015, [facility]), developed significant bilateral proximal lower extremity weakness and gait abnormality, and again failed to respond to nonsurgical management. He underwent a bilateral (revision left and new right) decompression and discectomy requiring additional repair of incidental durotomy without associated complication (04/03/2016, [facility]). This surgery resulted in early intermediate improvement in strength and function when he again reported precipitously worsening weakness and gait abnormailty with MRI (2016, [facility]) showing recurrent disk herniation, severe degenerative disk space collapse and foraminal stenosis. He again failed to improve significantly with conservative care and today's surgical management was selected by the patient and arranged. His physical examination continues to demonstrate severe hip abduction weakness (left greater than right) which likely accounts for a majority of his gait abnormality although a neuropathic cause for his balance and lower extremity coordination deficits cannot be ruled out. This proximal weakness and mild anterobilateral (left greater than right) thigh numbness correlates with his radiologic findings at L2-L3. His distal bilateral (left greater than right) anterior tibialis and extensor hallucis weakness could be explained by the large size of his previous and now new L2-L3 migrated left-sided disk herniation but a contribution from lower foraminal narrowing (not being addressed today) cannot be ruled out. Bilateral neurological deficit including both motor and sensory multiradicular distribution effects is consistent with caudal equina syndrome however he has no sacral root involvement and no hyperreflexia, abnormal reflexes or other findings to suggest conus syndrome. On radiologic studies, he has complete, [id number] left and severe right degenerative disk space collapse with [id number] left and severe right foraminal stenosis accounting for his proximal neurological deficits. Even with previous laminar decompression, his disk fragment (with migration behind the L3 vertebral body) causes sufficient unidirectional elevation of the left thecal sac to account for his significant deficits especially when combined with foraminal root compression and epidural fibrotic tethering likely contributing to longitudinal nerve stretch. In addition, radiologic studies show severe degenerative changes and even some deformity in the L4-S1 segment with his best preserved level being L3-L4 which, although status post posterolateral decompression, has intact disk. It was therefore recommended that only the L2- L3 level be decompressed and fused in the hope that this would address his primary symptoms and proximal motor deficits while maintaining his other degenerative but probably previously well tolerated segments to be addressed with a postoperative rehabilitation program. He understands that his more distal deficits are less well explained by the condition at the L2-L3 level and are less likely to respond to surgical treatment at this level. The high likelihood of persistent or future progression of degenerative conditions, symptoms and possibly of neurological and functional deficts potentially requiring terminal press operator accommodation, additional surgical or other treatment was reviewed, understood and accepted by the patient before making the final decision for the planned surgery outlined above. His preoperative laboratory studies were unremarkable with respect to plans for his operative and perioperative care. The patient has sufficiently severe and progressively worsening clinical features (symptoms and exam findings listed above) related to this condition, has failed a comprehensive conservative management program despite excellent compliance, has close correlation between clinical presentation and preoperative studies, is medically optimized for surgical intervention, understands and accepts the limitations, uncertainties and risk of surgery, appears to have appropriate goals for surgical outcome, and is more likely to achieve those goals with the planned surgical procedure than with other options for treatment thus making him a reasonable candidate for surgical intervention. The patient has a positive medical history of atrial fibrillation, hypertension and benign heart murmur. He reports a history of single syncopal episode with negative workup and no recurrence. He has an MRI compatible implanted [employer] cardiac recorder in place. He has a significant primary past surgical history of lumbar spinal decompressive procedures which are detailed above. He also has a positive secondary past surgical history of LASIK (2014) and implantation of clinical research monitor (03/29/2015). He denies any complications, adverse events or outcomes directly related to any of the above procedures or associated anesthesia care. His current and active medications include Losartan and low dose Aspirin. He discontinued Aspirin therapy at least 7 days prior to surgery per preoperative protocol and instructions. He denies any history of anaphylactic, anaphylactoid, allergic or non-allergic reactions or sensitivities to medications, foods or skin contact environmental allergens. He is a non- tobacco-smoker and denies significant alcohol intake or other social risk factors. He reports other daily smoking history which is described in greater detail in her office records and is not likely to be significant to his perioperative or other orthopaedic care. The above clinical information was reviewed throughout the hospital admission and preoperative confirmation process but did not alter surgical recommendations, treatment plans or perioperative management in this case. Treatment options were discussed in detail directly with the patient. After careful and appropriate consideration he elected to proceed with the planned operative procedure of L2 revision bilateral hemilaminectomies, L2-L3 epidural neurolysis and decompression followed by L2-L3 new multicolumn instrumented fusion. He also consented to any additional indicated procedure based on intraoperative findings including evacuation of pseudomeningocele and/or secondary durotomy repair if persistent cerebrospinal fluid leak is noted. Arrangements for hospital admission, surgery and perioperative care were made through Dr. Martin's office for combined Orthopaedic Spine and Neurosurgery co -surgical treatment. In addition to the general risks of all surgical procedures (bleeding, infection, anesthesia and other general risks), specific risks of the planned procedure were reviewed with the patient including but not limited to tissue injury or exacerbation of prior injury (spinal cord, nerve root, peripheral nerve, meningeal, blood vessel, bone, disk, joint, muscle, tendon, ligament or other tissue injury), meningeal tear, spinal fluid leak, fracture of spinal elements, worsening of spinal alignment, abnormal (hypertrophic, heterotopic or ectopic) bone or scar formation, new or persistent-exacerbated symptoms (pain, dysesthesias, paresthesias, headaches), development of new or worsening of preexisting medical conditions or complications (arthritis, blood clots, cardiac events, stroke, acute organ failure of any organ, other medical conditions potentially worsened by trauma, surgery, anesthesia or immobility), inability to complete the procedure as planned, and need for reoperation at the current or a future related site (including possible surgeries for degenerative processes documented at the current and adjacent lumbar levels). Potential for partial or complete, global or regional loss of motor, sensory, coordination, ambulatory, balance, bladder, bowel or sexual function was reviewed. Remaining potential complications were reviewed in inclusive risk categories ranging through all severity levels from temporary changes to catastrophic outcomes such as complete paralysis, organ failure, disfigurement or . The patient understood and accepted that his risk was likely significantly above average even for this already extensive, complex and high risk revision procedure compared to his age, clincal and function matched cohort due to his duration, severity, recurrence and steady progression of pre-operative symptoms, severe and persistent pre-operative bilateral lower extremity motor,sensory, coordination, ambulatory and other functional deficits, severity of neural element compression and presence of possible cerebrospinal fluid collection on MRI, degree and multiple levels of degenerative disk and facet complex disease with greatest laterolisthetic instability at his best preserved motion segment, electrophysiological deficits on preoperative EMG, previous surgery at the same lumbar region and level as well as progressive lumbar motion segment degenerative instability and stenotic involvement over time (with degenerative, stenotic and instability changes at other lumbar motion segments not being addressed by the currently planned procedure). He also understood that his risk of personally significant functional limitation following surgery was higher than most patients because of his relatively young age, vigorous desired baseline activity level and diffuse degenerative disease. On the other hand, his thin body habitus and history of excellent exercise compliance, generalized fitness and activity-related pain tolerance likely mitigates some of this increased risk. Finally, he understood and accepted that the purpose of surgery is to minimize the chance for further progression of symptoms and neurological deficit and that his current preoperative deficits may be permanent. Signed operative consent was obtained directly from the patient with good understanding of all reasonable alternatives, indications, goals, expectations, limitations, risks and benefits of the planned procedure. He consented to all phases of the procedure being performed by Dr. Martin and Dr. Gonzalez as co- surgeons with the assistance of all designated hospital and outpatient practice team members. He was cleared preoperatively as optimized for surgery by his primary care physician (Marva Garvey M.D.), all requested consulting medical subspecialists (Cardiology - Yogi Pyle M.D.) and primary surgeons office evaluations prior to admission. Preoperative arrangements were made to follow all clearance evaluation recommendations. In the preoperative evaluation area, the patient confirmed his oral intake status as NPO since midnight prior to surgery. Operative/Procedure Note Note: Preoperative Holding Area Assessment/Preparation: The patient was evaluated in the preoperative holding area prior to surgery and no clinical changes or contraindications to surgical intervention were documented compared to the stable preoperative baseline deficits documented on office and clearance neurovascular and musculoskeletal evaluations. There were no new multiple, bilateral or sacral root distribution sensory, motor, reflex, coordination or ambulatory changes to suggest acute increase in neural element compression or progressive cauda equina syndrome that might be associated with increased neurological intraoperative risk based on preoperative assessment. The surgical plan and site were confirmed with the patient and preoperative paperwork was finalized. The region of the intended surgical site was cleansed, prepped and marked per protocol. The surgeons, anesthesia care team members, and operating room staff confirmed the patient identity, surgical procedure, and operative site as well as other clinical details with the patient in an initial documented preoperative confirmation (awake time out) prior to the administration of sedation or anesthesia. Surgical Procedure: Dr. Martin and Dr. Gonzalez were both present for and participated equally as co-surgeons in all clinically significant phases of the surgical procedure documented below as well as for all critical intraoperative and perioperative decisions and interventions. The set-up, positioning, frameless CT-referenced stereotactic analysis and guidance, multicolumn (interbody cage and posterobilateral axrrqyw-[id number] construct) instrumentation, multicolumn ( interbody and posterobilateral intertransverse process space) arthrodesis and closure portions of the procedure are described in greatest detail in this operative report. Refer to Dr. Sharif Neurosurgical operative report for additional details particularly regarding the electrophysiological monitoring, exposure, revision and new osseous and soft tissue decompressive bilateral hemilaminectomies, facetectomies and foraminotomies, exploration for MRI suggested pseudomeningocele, epidural neurolysis, revision discectomy, osteophytectomies, and neural element decompression portions of the procedure. Set-Up/Positioning/Exposure - The patient was brought to the operating room in stable condition and underwent uncomplicated induction of general anesthesia, intubation, and placement of all appropriate monitors, lines and catheters without difficulty. Administration of 2 grams of IV Ancef based on patient body mass was given for surgical prophylaxis and was completed at least 30 and less than 60 minutes prior to making an incision. This antibiotic dose was repeated at four hour intervals throughout the procedure per standard operatve protocols. The patient was positioned prone on the [facility] operating table in standard fashion for a mid- lumbar decompression and multicolumn instrumented fusion taking care to protect and stabilize the spine during transfer, avoid positions of nerve stretch, pad all pressure points, and support the head without any pressure on the eyes using a foam head rest and head-holding frame. Electrophysiological monitoring electrodes were applied per standard monitoring protocol. The arms were abducted less than 90 degrees at the shoulders, flexed less than 90 degrees at the elbows and supported on well-padded arm-boards with additional foam padding from the axillary regions to the hands with all pressure points either fully padded or supported without any contact at all between pads. Baseline preoperative electrophysiological monitoring readings were obtained and both motor and sensory electrophysiological deficits were noted correlating with the patient's preoperative left greater than right motor and sensory deficits as well as his outpatient EMG study. The surgeons, anesthesia care team, and operating room staff again documented the patient identity, surgical procedure, and operative site as well as other clinical details in a final documented confirmation (final time out) prior to beginning the procedure. A cross-table lateral fluoroscopic image was obtained with a skin marker in place to determine the optimal level for incision, to document optimized intraoperative lumbar alignment, and to confirm acceptable radiologic visualization of the intended operative level with sufficient detail down to the lower lumbar segments throughout the procedure. Loupe magnification was used throughout the appropriate portions of the procedure. The approach, exposure, hemostasis, retractor placement, fluoroscopic identification of intended operative level, revision bilateral hemilaminectomy, facetectomy, foraminotomy, exploration for possible pseudomeningocele, epidural neurolysis, osteophytectomy, revision discectomy and decompression portions of the procedure are dictated in greatest detail by Dr. Gonzalez in his Neurosurgery operative report. Refer to that document for additional details. In brief summary, after sterile prep and drape using standard technique with DuraPrep, the patient's previous surgical incision was mapped and slightly extended longitudinally from the superior tip of the L1 spinous process to the superior tip of the L4 spinous process overlying the intended L2 posterior element operative level and the L2-L3 intervertebral segment as well as the L1 and L3 spinous processes for optimal safe revision dissection, exposure and reference frame fixation. Hemostasis was achieved using Bovie and Bipolar electrocautery beginning with the incision and continuing throughout the procedure with settings appropriate to each progressive level. The lumbosacral fascia was divided over the left side of the residual superior L2 and intact L3 spinous process tips as well as the bridging interspinous ligament segment using the Bovie electrocautery which was also used to maintain hemostasis throughout the exposure. Care was taken to preserve the midline interspinous tissue until the dissected level had been confirmed to be the intended operative level by fluoroscopic localization. Care was taken to avoid electrocautery dissection below the fascial level until intact osseous elements had been definitively identified to provide a protected plane for dissection outside of the previous laminectomy opening. Although previous MRI (performed several months ago) suggested possible pseudomeningocele extension to the subfascial level, no fluid was identified upon opening the fascia or, in fact, at any time during the exposure suggesting that the left supralaminar fluid documented on MRI was either hematoma or early postoperative cerebrospinal fluid collection through a small temporary leak which subsequently healed. In either case the fluid collection appeared to have completely resorbed. The dissection was then carried down the left side of the superior edge of the L3 spinous process and then extended laterally to expose the corresponding lamina at that level out to the inferior margin of the left L2-L3 facet. The edge of the previous laminectomy was identified and dissection carried along its superficial margin taking care to avoid revision dissection into the previous laminectomy defect until adequate exposure had been achieved. The dissection was extended superiorly and laterally along the superficial laminectomy edge out to the medial margin of the facet capsule which was preserved. Once the lateral laminectomy edge was identified the dissection was continued superiorly to the inferior edge of the L1 lamina so as to outline and adeqautely expose the entire laminectomy area. This allowed optimized neurolysis which in turn allowed revision decompression into the canal. Once the previous laminectomy region was fully circumscribed and before neurolysis and revision decompression was initiated, the left posterolateral dissection was extended over the facet complex, down the lateral faceteal wall and along the dorsal surfaces of the L2 and L3 transverse processes out to their most lateral extent to fully expose and prepare the left posterolateral gutter for fusion. This area was packed with a moist counted sponge and attention was returned to the canal region where the level was confirmed prior to beginning the revision decompression. The supralaminar fibrotic tissue from the patients prior surgery made dissection difficult, as had been discussed with him preoperatively, and was associated with meningeal tethering in the previous laminectomy site. Debulking of this superficial fibrotic tissue with direct dissection in the epidural plane was required to safely access the laminar edges and perform revision laminectomy. This epidural dissection was well beyond (more than two standard deviations above the mean compared to) the normal dissection required for revision discectomy in duration and complexity and was required to safely mobilize the thecal sac from the edges of the previous laminectomy while avoiding dissection in the higher risk region of the previously repaired dural defect. The thecal sac could not have been safely mobilized from the undersurface of the lamina and the remainder of the critical decompressive and fusion portions of the procedure could not have been completed without this additional neurolysis procedural service. The edge of the previous laminectomy at the intended revision hemilaminectomy and discectomy level was marked with a curved curette placed under the inferior edge of the superior (L1) lamina and confirmed to be at the intended segment on cross-table lateral fluoroscopic image. A spinal needle was also placed at the base of the exposed left L2 transverse process as a secondary marker and was confirmed to be at the intended level on fluoroscopy. Intraoperative findings of multilevel severe lumbar degenerative disk disease, hypolordosis, scoliosis and segmental instability with angular hypermobility was unchanged from and correlated well with the preoperative radiologic studies and no obvious interval change or additional abnormality was noted. Once the appropriate levels were fluoroscopically confirmed, the fascia was divided on the right side of the superior L2 and complete L3 spinous process tips and dissection was continued in a symmetrical fashion to the left to fully expose the edges of the previous laminotomy out to the medial edge of the facet joint capsule which was initially preserved. As on the left, Bovie and Bipolar electrocautery as well as a [place] elevator were then used to dissect over the facet joint, down the lateral faceteal wall (taking care to maintain hemostasis of the faceteal vessels where necessary) and over the dorsal surfaces of the L2 and L3 transverse processes and the L2-L3 intertransverse membrane out to the lateral level of the transverse process tips. Once this dissection was completed, the lateral gutters were thoroughly irrigated and packed bilaterally with counted moist sponges. Attention was then turned to the midline decompression. Hemilaminotomy/Discectomy/Decompression - After epidural neurolysis identified a clear plane into the canal on the left at the edges of the previous laminectomy defect, revision hemilaminectomy was performed on that side by first resecting the residual superior laminar arch of L2 and the superior base ("keel") of the L2 spinous process (as defined on preoperative CT scan) and then continuing in this plane to dissect down the lateral wall of the canal into the lateral recess. As with the more superficial dissection this required extensive neurolysis well beyond that even required for a tandard revision procedure with particular care required to avoid and protect the region of previous dural repair. This allowed untethering and slight retraction of the lateral thecal sac and traversing nerve root until the medial wall of the facet was adequately exposed. An extensive decompressive facetectomy was then performed with Kerrison rongeurs out to the level of the L2 and L3 pedicles and the exiting nerve root entry zone to the foramen. Significant epidural fibrosis was found extending into the medial zone of the foramen again requiring significant neurolysis to untether the nerve. Most of this was achieved prior to implant placement but some of the untethering could not be completed until the disk space had been distracted and the foraminal height restored after instrumentation (see below). With the left L2 revision hemilaminectomy, dorsal and lateral neurolysis and osseous decompression completed the neural elements could be adequately mobilized medially with a Love nerve root retractor to expose the ventrolateral floor of the canal. Once again, extensive neurolysis was required using [place] and Kimberlyn curette dissection to untether the traversing root, safely retract close to midline and expose the underlying disk herniation. A moderate sized extruded and partially encapsulated disk fragment extending the width of the lateral recess was identified partially in a subligamentous pocket but also partially projecting through an opening in the ligament and likely directly contacting but certainly focally compressing both the traversing and exiting roots at that level. The degree and impact of this unidirectional compression had likely been markedly accentuated by the previous neural element tethering which was now relieved fllowing neurolysis. The disk fragment was removed and sent to pathology. As expected following two prior discectomy procedures and based on recent MRI findings, the disk space was significantly collapsed and very little residual disk material was found in the disk space. Once the discectomy was completed, an Kimberlyn curette and nerve hook were used to gently sweep under the retracted traversing nerve root and thecal sac (to the extent possible given the residual ventral midline epidural fibrosis) to ensure that there was clear passage within the epidural space with no residual extravasated or sequestered disk fragments found. A [place]ose dental instrument was then gently passed out the upper and lower foramina with the only residual foraminal narrowing and stenosis associated with persistent nerve root tethering and compression being to the exiting nerve root due to pedicle on pedicle compression which was relieved later with instrumentation distraction and further intraforaminal neurolysis (described below). No residual tethering or compression was noted to the traversing thecal sac and nerve roots. Even with extensive neurolysis described above, sufficient medial nerve root mobilization to allow implantation of interbody cage was difficult and therefore attention was turned to the still fibrotic but less previouly dissected and tethered right side. The thickened fibrotic tissue did serve as an excellent protective barrier over the region of the previous dural repair which was not dissected or visualized. There was no fluid collection or extravasation of cerebrospinal fluid noted at any time during the procedure. The previous right sided hemilaminotomy was less extensive and the fibrotic tissue in this region was less dense allowing for easier neurolysis and neural element mobilization on this side. Neurolysis on this side was more consistent with standard revision decompressive procedures. This allowed slightly more medial mobilization of the traversing nerve root and thecal sac so as to accommodate safe placement of an interbody cage on this side. Decompression was performed using similar technique to that described for the left side above. The edge of the previous hemilaminotomy was carefully dissected and the residual L2 lamina was removed out to the margin of the facet. A subtotal facetectomy was performed to provide optimal clearance and trajectory for interbody cage placement. On the right side there was some normal, previously undissected ligamentum identified, which provided a clean dissection plane down to the floor of the canal. With the perineural dissection, neurolysis and revision decompression complete on the right side, epidural hemostasis was achieved using Bipolar electrocautery and gentle packing of the epidural space with small volume of Thrombin soaked Gelfoam held with Patties which also provided some medial retraction of the neural elements for initial exposure of the disk space. No right sided extruded herniation fragments or compressive osteophytes were identified. The neural elements were then carefully and safely retracted with a Love nerve root retrator so as to allow rectangular annulectomy followed by subtotal decorticating discectomy in preparation for instrumented fusion. A rectangular annulectomy was performed using a #11 scalpel blade. Interspace discectomy was then performed to remove the entire central portion of the intervertebral disc material using straight and angled pituitary rongeurs taking care to carry the discectomy laterally within the subannular disk space ventral to the foramen so as to minimize the risk of protrusion in the intra- and extra- foraminal spaces, lateral recesses or central canal during interbody cage implantation. As expected, the disk material was found to be structurally extremely degenerative. A majority of the disk material was removed from all disk space zones while preserving the peripheral rim and annulus to help contain the graft. Anterior and lateral palpation revealed no annular or cartilaginous endplate defects. Once the discectomy was completed, an Kimberlyn curette and nerve hook were used to gently sweep under the retracted traversing nerve root and thecal sac to ensure that there was clear passage within the ventral epidural space with no residual extravasated or sequestered disk fragments found. A [place]ose dental instrument was then gently passed out the upper and lower foramina without evidence of any foraminal narrowing, stenosis or nerve root compression of either the exiting or the traversing roots. Therefore, no additional osseous foraminotomy, foraminal soft tissue decompression or lateral root neurolysis dissection was required for decompression on the right side. Electrophysiological monitoring signals remained unchanged throughout the decompressive portion of the procedure. Shortly following decompression and segmental distraction with interbody cage implantation, signals showed some improvement (albeit subtle) bilaterally, particularly on the left where the patient previously had the most significant deficit. Hemostasis of osseous and epidural bleeding was achieved using Thrombin soaked Gelfoam and paddies gently applied and removed by irrigation with all bleeding controlled. Bleeding from the laminectomy edge was controlled with small amount of bone wax applied using the back of a [place] with any residua removed. Arthrodesis/Instrumentation - The fusion portion of the procedure including instrumentation and grafting is dictated in greatest detail in this operative report. All resected laminar and faceteal decompression bone was cleaned of soft tissue, morselized, and saved in sterile saline for later reimplantation as autograft. With the disk space fully exposed, and the neural elements retracted and protected with a Love nerve root retractor, the disk space was prepared and optimized for interbody arthrodesis by performing the above documented subtotal decompressive discectomy followed by chondral endplate resection to punctate cortical bleeding using sequential rotating distracting and decorticating dianelys and multiple angled serrated curettes. Hemostasis was confirmed and the interspace and surgical site were thoroughly irrigated prior to placement of the implant and central morselized autograft. The L2-L3 disk space was templated using standard sequential trialing technique ultimately documenting optimal fit and soft tissue tension with a standard trial of 10 mm height, 9 mm width, 24.5 mm depth and 4 degrees of lordosis. Fluoroscopic anterior-posterior and lateral images were obtained and documented optimal positioning, disk space and foraminal height congregational and adequate lordosis congregational with good endplate support and distraction without endplate compromise. It was felt that additional lordosis would be beneficial in this circumstance and would not likely significantly increase the risk of endplate compromise and so a final implant was chosen with all dimensions identical in size to that of the trial with the exception of the lordosis which was selected to be increased to 8 degrees compared to the trial. Approximately 6 cc of YouDo Cloud Demineralized Bone Fiber (DBF) allograft substitute osteopromotive material was gently compressed into the anterior margin of the disk space and across the midline anterior and contralateral to the intended position of the interbody cage taking care to avoid projection of graft beyond the confines of the grossly degenerative disk space and annulus. Care was also taken to completely fill the height of the disk space with this graft substitute material in these peripheral zones while avoiding excessive packing of allograft in the intended path of the cage so that the graft would not impede optimal placement of the cage or result in projection of graft outside of the disk space during cage impaction. The 10 mm height x 9 mm width x 24.5 mm depth x 8 degree lordosis FUSE Titanium rotating lordotic implant central chamber was packed with morselized autograft such that graft was projecting slightly beyond the height of the implant so as to provide optimal graft-endplate contact after central disk space placement of the graft-filled implant and rotation into lordotic alignment. The FUSE implant was then gently impacted into the interspace in the flat horizontal position until it was recessed well beyond the posterior vertebral body wall and endplate edge. Fluoroscopic anterior-posterior and lateral images documented optimal interbody cage position. The cage was then rotated 90 degrees into final vertical lordotic position per the implant design. Final fluoroscopic views confirmed optimal cage position with partial congregational of disk space and foraminal height and partial congregational of segmental lordosis. Once the interbody implant was in optimal position, excellent interference fit was documented with no motion visualized or palpated when gentle dorsally directed ( "pull-out") force was applied to the cage using the captured impaction handle. The impaction handle was then removed and the posterior aspect of the cage was confirmed to be recessed by several millimeters within the disk space below the edge of both endplates. The Love nerve root retractor was removed and the overlying traversing neural structures were allowed to return to their normal resting position with no encroachment, contact or even close proximity noted to the interbody cage. No residual epidural fibrotic tethering or compression was noted. The shoulder and axilla of the traversing root was checked to insure that there was no significant tethering in either region which might be associated with compressive acute take-off ("kinking") at the nerve exit from the thecal sac. With the interbody implant optimally placed, attention was turned to the application of intraoperative frameless stereotactic navigation ( fixation of reference frame, acquisition of O-arm intraoperative CT scan, rendering of Stealth three-dimensional spatial maps, instrument registration and intraoperative navigation) for placement of posterobilateral [id number] transvertebral instrumentation. The reference grid was rigidly fixed to the spinous process post which had in turn been rigidly clamped to the L4 spinous process. Prior to and following each O-Arm scan the surgical site was thoroughly irrigated with approximately 250 cc of antibiotic irrigant and the final irrigant was left to fill the surgical opening during the O-Arm scan so as to optimize scan quality. With the operative field and reference frame sterilely covered, the O-Arm was brought into the room and positioned for optimal scan of the intended instrumentation levels. Human Resources Admin images confirmed optimal scan field with reference frame position detected by the Stealth tower. O-Arm CT scan was acquired per standard protocol and the scan data was transferred to the VDP station for rendering of three- dimensional navigation model. The scan images were reviewed in all planes and found to be of good quality and anatomic detail for evaluation and stereotactic navigation of osseous structures. This initial scan confirmed improved foraminal patency on the left particularly in the mid-foraminal exit zone compared to the preoperative study scan following foraminotomy decompression and interbody cage placement resulting in disk space and foraminal distraction. The O-Arm was opened and backed out of the room. The sterile covering was removed from the operative field and the surgical site was again thoroughly irrigated prior to proceeding with pedicle screw navigation and placement. The instruments were registered to the reference frame and confirmed to be accurate within the spatial model by properly localizing anatomical landmarks with the registered instrument tips prior to proceeding with stereotactically guided instrumentation. With digital model and instrument localization accuracy confirmed, the four pedicle screws were placed using standard and identical, bilaterally symmetrical Stealth stereotactic navigation guidance technique. At each screw site the entry point and trajectory for the pedicle screw was localized using the stereotactic pointer or awl. The awl was used to breach the outer cortex with each entry point being standard for normal anatomy patients without deformity. Each entry point was at the base of the transverse process just superior to the upper flare of the pars interarticularis of that level at the inferolateral margin of the facet joint above it. Once the entry site was defined with the awl, a stereotactic pedicle dissector was advanced through the pedicle and into the anterior third of the vertebral body taking care not to angle too closely to the upper vertebral body endplate. This defined pedicle screw path was then tapped with a 5.5 mm navigational tap following the same trajectory. Initial screw length measurement was made off the tap depth markings. The screw path was palpated with a ball-tip probe to its base and along the waggoner of the screw hole in all four quadrants with no deep or pedicle wall cortical breach detected. With the probe at the maximal depth of the screw hole a hemostat was applied to the probe at the screw entry site level and the screw length measurement was confirmed by measuring from the clamp to the tip of the probe with a ruler. The measurements were consistent in each case and screw length was then selected on the basis of those confirmed measurements. All four screw holes were dissected, tapped, checked for breach and measured before any of the screws were placed so that decortication of the posterolateral osseous elements could be readily performed without access being blocked or limited by hardware. Prior to final screw placement, the intertransverse spaces were thoroughly irrigated and the posterior surfaces of the transverse processes, lateral waggoner of the facet complexes and posterolateral surfaces of the pars interarticularis regions were decorticated bilaterally using the Midas David drill. The appropriate size screws were then attached to the navigating electric mule driver for each previously prepared and measured screw site and each screw was advanced at the stereotactically defined entry site and trajectory with excellent insertional and final torque as well as rigid final fixation and no loosening evident when posteriorly directed ("pull-out") force was applied with the electric mule driver. The electric mule driver was then removed and the implanted screw was confirmed to be in optimal position with mobile head to allow for final huan placement and fixation. This identical technique was used for placement of all four screws. Based on the above depth measurements, Medtronic Mobile Backstagea system dual thread-pitch 6.5 mm diameter pedicle screws of 50 mm length were placed bilaterally at L2 and L3. The surgical site was again irrigated prior to sterile drape and plastic covering of the surgical field and reference grid, positioning of O-Arm and acquisition of final scan documenting excellent screw position at each site. The O-Arm was again removed, optimal exposure restored and the surgical site thoroughly irrigated. Each screw was tested using electrical stimulation and neurophysiological monitoring. All screws were found to have extremely low conductance to exiting and traversing nerve roots well within standard and acceptable levels suggesting intact pedicle wall without cortical breach to or direct screw contact with adjacent neural structures. With the interbody and pedicle screw instrumentation in place and prior to final interpedicular huan placement and fixation, the posterolateral fusion was performed using standard technique. All previously placed packing sponges were removed and accounted for. With the foramen fully visualized (and using slight distraction between the pedicle screws where necessary) the final lateral neurolysis was performed on the left through the previously most constricted central zone of the foramen taking care to avoid neurolysis, epidural dissection or significant manipulation in the extraforaminal zone in the region of the dorsal root ganglion. This final region of fibrotic tissue was not as dense or compressive as the intracanal tissue and so, although necessary to complete the neural element untethering, neurolysis in this region was more consistent with standard second revision decompressive surgery. The retractors were optimized for posterolateral gutter access and final preparation for arthrodesis was performed with all residual soft tissue resected from the posterolateral elements down to the level of the intertransverse ligament which was preserved. The debrided posterolateral elements and spaces were again thoroughly irrigated using approximately 500 cc of Bacitracin irrigation via bulb lavage technique prior to decortication, grafting and final instrumentation. The osseous posterobilateral structures were decorticated down to bleeding cancellous bone using the Midas David drill and 5 mm cutting karla including the L2 and L3 transverse processes, the lateral waggoner of the facet complex and pars interarticularis of both operative vertebral levels and the associated intervertebral motion segment taking care to avoid destabilizing any of these structures. The remaining bilateral facet capsules on both sides of the fused motion segment (L2-L3) were removed and the facet joints denuded by superficially drilling into the joint space with a Midas David drill to promote facet joint fusion while avoiding deep joint disruption so as to minimize joint destabilization. Given the wider right-sided facetectomy required for interbody cage placement in this case, only the mid-portion of the superior articular process of the joint complex was preserved on that side but this was still sufficient to provide a stable foundation for fusion and protection to prevent migration of graft into the decompressed canal. On the left side where the facetectomy had been less extensive, most of the facet complex bone could be preserved for optimal arthrodesis ingrowth and preservation of the lateral wall of the canal to protect the neural elements. On the left side there was sufficient remaining facet that the denuded joint could be packed with graft so as to facilitate fusion without risk of graft migration into the canal. The intertransverse space was then gently packed on both sides with a mixture of the remaining cleaned and morselized autograft, the remainder of the previously opened and prepared (approximately 3 cc) and one new container (6 cc) of Advantagene Cloud DBF reconstituted with five milliliters of blood per recommended protocol placed in order from deep-medial (closely approximating the decorticated structures) to superficial-lateral. All graft material was divided equally between the two sides and distributed equally on each side across the intended arthrodesis level from L2 to L3. Care was taken to compress graft against the posterolateral decorticated structures for optimal ingrowth while avoiding any extension of graft deep (below the intertransverse membrane) or medial (close to the decompressed canal or foraminal openings) to the intended fusion bed so as to prevent any contact or impingement on the neural elements or other unintended structures. Precontoured Medtronic Solara system 4.75 mm diameter Goree-Chrome rods 40 mm in length were found to fit optimally on each side without need for additional lordotic contouring. The length of both rods were checked to insure that there was only minimal extension beyond the superior or inferior screw heads with no impingement on the upper or lower facet complex. The rods were placed so as to optimize congregational of lordosis with the concavity of the huan contour oriented posteriorly. Set screws were placed over the rods in the heads of each screw taking care not to cross-thread. Prior to final tightening all neural elements including each exposed and decompressed foraminal nerve root exit zone was confirmed to have unimpeded passage by palpation with a nerve hook and Appanoose instrument. The alignment and decompression was felt to be optimal with no additional in-situ correction required and so the set screws were tightened maximally and sheared off at preset torque per their design with the screw-huan interfaces fixed in their resting position (neutral mode) with no compression or distraction applied. This [id number]-fuh construct combined with the anterior implants formed a rigid construct which resisted both translational and angular forces in the sagittal, coronal and axial planes by gentle intraoperative manual testing. Following posterobilateral decortication, arthrodesis graft placement and final hardware fixation but prior to final closure, each exposed foraminal opening and all neural elements including each decompressed foraminal nerve root exit zone was again checked with a Appanoose instrument passed above and below as well as a nerve hook passes on all sides of each decompressed nerve root and confirmed to be widely patent with clear passage of the nerve root at each level on both sides. The decompression was felt to be optimal with no residual stenosis or impingement by graft material noted. The retractors were removed and the superficial soft tissues were checked with no evidence of pressure changes or need for debridement. Continuous electrophysiological monitoring throughout the procedure showed no significant or prolonged adverse changes at any point during the decompression, instrumentation, or at any other time during the case. In fact, there was [some/[a/an] [intermediate/significant] [percentage]] improvement in electrophysiological responses reported following neural decompression compared to initial recordings consistent with the change between preoperative or initial intraoperative and the final intraoperative surgical and radiologic anatomic findings. Moderate correction of hypolordotic, scoliotic and translational retrolisthetic lumbar segmental (as well as lesser global lumbosacral regional) alignment was achieved by initial patient positioning, use of a rotating lordotic intervertebral implant and use of a posterior transvertebral screw-huan construct designed and implanted using techniques to restore anatomic alignment. Slight correction of scoliosis was also achieved by holding the alignment of the spine in the desired position (using the "anti-torque" sleeve to rotate the transvertebral rods within the heads of the screws) while final tightening and construct fixation was being achieved. Although noticeable, partial segmental, regional and global alignment correction was achieved into an improved curvature closer to normal anatomic alignment, given that the patient's preoperative baseline spinal malalignment was not felt to constitute a clinically significant deformity, there was no formal deformity correction required for improved outcome in this case and so the achieved correction was considered an included portion of the arthrodesis and instrumentation procedure and therefore was not separately designated or coded. Closure/Recovery - The surgical site was thoroughly irrigated and hemostasis was carefully achieved prior to closure. FloSeal (5 cc) was placed in the lateral epidural spaces on each side. Several pieces of Thrombin-soaked Gelfoam were used to cover the laminectomy defect and placed over the dorsal surface of the lateral thecal sac as well as the exiting and traversing nerve roots so as to minimize epidural fibrotic adhesions to the decompressed neural elements. Dual large bore subfascial RESHMA drains were placed with one on each side in the lateral intertransverse spaces and carried out through the inferior wall of each side of the surgical site using a trocar. Initial counts were correct prior to closure. The deep lumbar muscular layer was reapproximated using #0 Vicryl interrupted suture technique so as to minimize open subfascial space for hematoma collection. The fascial layer was reapproximated in a [id number]-wu-olco closure using #0 Vicryl interrupted, eqetnh-mx-sncxo suture technique. The deep suprafascial closure was performed with #2-0 Vicryl interrupted, simple suture technique. The superficial subcutaneous layer was closed with #3-0 undyed Vicryl inverted, interrupted, simple sutures. The skin was closed using margarito with the edges everted. A standard, sterile Xeroform dressing was placed, covered with folded fluff gauze 4x4s and ABD pads and held with Coverall with good surgical site and bilateral drain site coverage. All counts were correct prior to removing the drapes. The patient was turned into the supine position on the hospital bed using careful log-roll technique, avoiding torsional stress and stabilizing the lumbar region during transfer. He was then extubated in the operating room without difficulty. Recovery Room Assessment: The patient was transported to the recovery room in stable condition where gross neurological examination showed no change or worsening from stable baseline preoperative deficits and no new findings compared to his pre-operative assessments on initial recovery from anesthesia. Once he was fully responsive on early recovery from anesthesia, although his evaluation was somewhat limited by sedation and surgical axial back pain, his bilateral distal lower extremity strength appeared to be slightly stronger than on preoperative assessments ( particularly on the left) in that he was better able to maintain extensor hallucis longus and anterior tibialis strength for longer duration against more resistance before giving-way. The patient will follow the usual postoperative protocol for mid-lumbar revision decompression, epidural neurolysis, decompressive discectomy and instrumented multicolumn fusion. Some adjustments and accommodations will be made to the standard protocols for this type of procedure because of the degree of preoperative neurological deficit and gait disturbance, the size of the patient's herniation fragment and extent of compression as well as his multilevel degenerative changes and desire to return to a high level of function including vigorous home and family care activities as quickly as possible. His postoperative care plan will include early mobilization, IV [and then] weaning to oral medication pain control, and home discharge planning starting on postoperative day #1 or #2 with possible need for inpatient rehabilitation program. He will use a circumferential four-quadrant buttressed compression brace during the initial phase of healing for stability and to limit angular motion. Lower extremity (particularly gentle hip and knee) motion is encouraged to promote longitudinal nerve motion and minimize fibrotic neural tethering during the fibrous consolidation and motion segment stabilization healing phase. Once he is home, outpatient rehabilitation program will be arranged through the office to begin slowly but progressively at approximately 6 weeks after surgery assuming standard and uncomplicated postoperative course and following clearance at initial postoperative follow-up assessment. Given the revision nature of his lumbar procedure, significant use of allograft substitute osteopromotive material for arthrodesis graft and his likely impaired osseous healing potential due to multiple medical conditions and recent smoking history, a spinal fusion osteogenesis stimulator is indicated and will be ordered, applied and followed through the office. Findings: 1) Well healed previous surgical site without significant cutaneous, subcutaneous, fascial, muscular or osseous abnormality associated with multiple previous surgical procedures. 2) Significant L2-L3 left epidural fibrosis requiring epidural neurolysis ( well beyond two standard deviations from the mean range for revision discectomy procedures) to safely retract and protect the neural elements for discectomy, decompression and instrumented interbody fusion which could not have been accomplished without this distinct and extensive epidural neurolysis procedural service.3) Moderate osseous lateral recess and severe left greater than right foraminal stenosis associated with neural compression 4) Large, extruded and partially migrated, compressive disk herniation fragment was identified significantly elevating, unidirectionally compressing and irritating the overlying traversing and exiting neural elements. The extruded portion was associated with direct contact with the traversing neural elements including the lateral thecal sac and L3 nerve root. 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 The migrated and partially sequestered portion of disk herniation within a subligamentous pocket was associated with densely adherent and inflammatory epidural fibrotic tissue within the lateral recess causing L2 and L3 nerve root exit zone irritation even with previous decompression limiting preessure on neural elements to unidirectional rather than bidirectional or circumferential compression. All of these findings are consistent with the patient's preoperative clinical presentation and radiologic findings. 5) Full central canal and bilateral nerve root exit zone (lateral recess and foraminal) decompression was documented by intraoperative palpation at the operative level. Foraminal stenosis associated with asymmetrical left greater than right severe disk space degenerative collapse noted on preoperative studies and confirmed on initial foraminal assessment after discectomy was fully patent after foraminotomy. Improved formainal osseous patency was also confirmed by intraoperative O-Arm scans after interbody cage placement. 6) Optimal fit of the interbody cage resulted in partial congregational of intervertebral and foraminal height as well as segmental lordosis. Optimal position and fixation of the [id number]-dxi construct was achieved, documented by intraoperative visual and radiologic assessment and confirmed on final intraoperative O-Arm scan. 7) Partial congregational of lordotic segmental alignment was confirmed by intraoperative radiologic assessment but was felt to be consistent with and included as part of other procedural services for this case and therefore was not separately coded. 8) No change in electrophysiologic recordings was reported during decompression, neurolysis, discectomy, instrumentation or at any other time during the procedure. Slight improvement in recordings was noted after decompression. 9) The patient was neurologically and musculoskeletally unchanged without any worsening and possibly with some distal motor strength improvement on initial postoperative assessment after early recovery from anesthesia. Discharge Disposition: PACU Additional Comments: The patient will be admitted to the hospital on the Orthopaedic Surgery (rSidevi Martin M.D.) service with close cosurgical followup by the neurosurgery service (Kaylynn Gonzalez M.D.). Once cleared by anesthesia and recovery room protocols and assessments, he can be transferred to the surgical floor where standard postoperative spine service, nursing, physical therapy, discharge planning and any other indicated hospital service care protocols for patients status post revision lumbar decompression, extensive neurolysis, discectomy and instrumented multicolumn fusion will be followed. These postoperative protocols will include: Continue perioperative prophylactic antibiotic coverage (Ancef 2 grams IV every 8 hours) until at least one dose after all drains have have been removed or for a total of at least 24 hours whichever is longest. Continue use of Sanchez catheter overnight if tolerated. Catheter may be removed on day or night of surgery upon patient request due to discomfort and should be removed in AM in any case as long as he is able to mobilize sufficiently to use urinal, bedside commode or bathroom. If patient not adequately mobile to remove Sanchez or if continued precise I&O measurement is recommended by primary or covering services, then continue catheter use and notify covering physician metal moulder's assistant for primary surgical team. Once Sanchez catheter has been removed, use intermittent straight catheterization every shift or as needed for inability to void and/or discomfort due to bladder distention documented by bladder scan checked as indicated per standard hospital protocol. Empty each drain bulb reservoir using sterile technique, measure and record output every shift. Continue RESHMA drains until removal ordered by primary surgeons based on output and other postoperative clinical criteria. Continue antibiotic coverage until one dose after the last drain is removed unless otherwise ordered by operating surgeons. The patient will use his lumbosacral circumferential four-quadrant buttressed compression brace (which was previously fitted and dispensed through the office) most of the time when he is out of bed but may remove it to take breaks and for hygiene. Even when the brace is in place, but particularly when the brace is off, the patient is cautioned to minimize lumbar motion and prolonged unsupported upright sitting. This level of brace use and motion limitation will continue until at least his second (six week) postoperative visit at which time future need for bracing will be assessed and he may be able to wean its use first for normal functions and then for more vigorous activities as he strengthens with a standardized outpatient physical rehabilitation therapy program. It is not necessary for him to use the brace constantly nor when he is sleeping although he may use it at night for comfort if he so chooses. The patient will be instructed on and follow standard protocols regarding lumbar surgical site care, showering and daily dressing changes following shower starting on postoperative day #2. The patient will begin mobilization on the morning of postoperative day #1 (or earlier if requested) first with walker-assisted pivot transfers to chair or commode and then progressing as tolerated with ambulation to the bathroom, in the room and then in the hallway ultimately working on stair climbing and descending over the subsequent several hospital days. Each progressive step in mobilization will initially be with physical therapy and then, once cleared by them, continue several times per day with nursing assistance or supervision until he is able to demonstrate independent walker assisted mobilization in preparation for home discharge. The patient is encouraged to minimize lumbar motion, lifting, carrying, pushing, pulling and prolonged unsupported upright sitting (longer than for meals) particularly during the first 6 weeks postoperatively. Advance to regular diet as tolerated without any specific required postoperative restrictions. Because of the extent of surgery, duration of anesthesia, requirement for intermediate dose narcotic pain medication, slow advancement of diet is recommended initially starting with liquid or mechanical soft diet and progressing over 24 to 48 hours as tolerated. Balanced diet is recommended to support optimal surgical site and osseous healing. If any significant adverse GI symptoms develop then the patient is instructed to reduce diet to mechanical soft or liquid diet and contact (in order) his admitting surgeon and primary care physician. The patient is at low perioperative thromboembolic risk and does not require any pharmacologic prophylactic treatment in this regard as long as he mobilizes early and frequently with lower extremity motion exercises and walking. Sequential compression devices will be used throughout the patient's hospitalization. Contact Dr. Martin in the unlikely event that the patient is unable to mobilize adequately (at least to the hallway) with physical therapy and/or nursing by postoperative day #2 at which point pharmacological prophylaxis may be considered. Assuming standard hospital course: The initial plan is for home discharge after standard 3-5 day postoperative hospital stay following complex revision decompression and instrumented fusion. Discharge planning can begin on postoperative day #1 or #2 once the patient has fully recovered from anesthesia, achieved adequate postoperative pain control, initiated mobilization and demonstrated adequate progression toward independent functional home discharge criteria. If the patient has difficulty achieving or at least approaching criteria for home discharge by POD #3 (which would not be unexpected particularly given his significant preoperative deficits) then he would certainly be an excellent candidate for an inpatient postoperative rehabilitation program (given his significant preoperative functionally limiting orthopaedic conditions but young age, excellent preoperative exercise compliance and high level of motivation) and this can be arranged beginning at that point. The patient will be discharged with the following prescriptions: Narcotic Pain Medication: Oxycodone/Acetaminophen 5/325 mg 1-2 PO q4-6 hours prn pain (#60, No Refill) Benzodiazepine Muscle Relaxant Medication: Diazepam 5 mg 1-2 PO q8 hours prn spasm (#30, No Refill) The patient was instructed not to drive for at least the first 2 weeks postoperatively and given recommendations regarding short distance driving thereafter only if he no longer requires a brace, has good pain control without the need for narcotic or other sedating medication, and has met all DMV criteria for safely operating his specific motor vehicle. Initial postoperative follow-up evaluation was scheduled for the patient prior to surgery and should be approximately 10-14 days postoperatively at which time his surgical site will be checked and his early response to surgery will be assessed. Assuming home discharge per protocol, standardized outpatient postoperative lumbar fusion rehabilitation physical therapy program will be arranged through the office to begin slowly but progressively at approximately 4 weeks after surgery assuming standard and uncomplicated postoperative course and following clearance at initial postoperative follow-up assessment. This program will initially concentrate on core stabilization and short arc motion exercises which should allow graded return to basic function and more normal activities while still optimizing fusion healing. At approximately 2 months postoperatively, after confirmation of early fusion mass consolidation, the brace can be weaned and more aggressive strengthening, motion and functional outpatient rehabilitation programs can be initiated with the goal of achieving higher functional levels. Additional advanced therapy programs may be required for full activity return depending on specific patient requirements and goals particularly given the extent and duration of his preoperative deficits. Anterior-posterior and lateral lumbar spine radiographs will be performed ( without the brace in place) at both the 2 and 6 week follow-up evaluation unless indicated earlier and then serial radiographs will be performed per protocol thereafter. The patient already has Dr. Francis and Dr. Gonzalez's office contact information and will again be given the office phone numbers along with home care instructions prior to discharge. He is encouraged to call for any questions or concerns and particularly for any significant or prolonged fever or incisional drainage, erythema or swelling as well as for any pronounced lower extremity neurological changes. CC: VERONICA COATES,SRIDEVI Carpenter; LISA COATES,KAYLYNN Carvajal
[2016-09-22] MEDS ORDERED: VALIUM5 M2 PO (07:20)
[2016-09-22] MEDS ORDERED: DILAUDID2 M1 PO (07:20)
[2016-09-22] MEDS ORDERED: CELEBREX200 M1 PO (07:20)
[2016-09-22] MEDS ORDERED: PERCOCET 5-3251 EACH PO (07:20)
--- NOTE | 2016-09-22 07:37 | PN- Orthopedic ---
Subjective Subjective: OOB in chair without complaints Overnight events noted Pt states that he tripped and caught himself. He has no concerns regarding falling and didn't ever feel lightheaded or dizzy Pain well controlled Objective Vital Signs and I&Os Vital Signs Date Time Temp Pulse Resp B/P B/P Pulse O2 O2 Flow FiO2 Mean Ox Delivery Rate 09/22 0639 98.2 81 20 146/70 97 Room Air 09/21 2214 98.2 98 20 126/70 99 09/22 2027 144/82 09/21 1830 110 20 178/100 09/21 0941 120/70 Intake & Output 09/22 0800 09/22 0000 09/21 1600 09/21 0800 09/21 0000 09/20 1600 Intake Total 180 600 700 240 120 960 Output Total 350 450 360 115 140 Balance -170 150 700 -120 5 820 Intake, IV 600 Intake, Oral 180 600 700 240 120 360 Number 0 Bowel Movements Output, 60 115 140 Drainage Output, Urine 350 450 300 Physical Exam: afebrile, vss General: alert and oriented times three Chest: clear anteriorly bilaterally Abd: soft, good bs Ext: warm, no edema Neuro: positive sensate all 4 ext. good DILLON 5/5 all 4 ext Wound: dressing changed, margarito intact, some serosang drainage from collins site Assessment/Plan Assessment/Plan 66yo male s/p revision girard await PT clearance dc to home if cleared pain meds ordered per Dr Harris All questions answered Core Measures/Miscellaneous Venous Thromboembolism VTE Risk Factors: Age > 40, Surgery VTE Contraindications: No Contraindications VTE Diagnosis: No VTE Type: NONE VTE Confirmed by (Test): NONE Beta Leonard Is Beta Leonard a Home Med? No Antibiotics Is Patient on Antibiotics? No If Yes: prophylaxis
[2016-09-22 09:20] VITALS: BP 146/70
--- NOTE | 2016-09-22 11:55 | NUR ---
PT EAGER TO LEAVE HOSPITAL, HOME CARE AGENCY HAS NOT BEEN DETERMINED, BUSINESS CONTINUITY COORDINATOR WILL CALL PATIENT WITH NAME OF AGENCY.
== END 2016-09-22 11:50 | disposition home health service (06) | DRG 460 ==
LOC: SDA 02:16 → ENRESERV 15:23 → ENTRNSPT 17:28 → 2NA 17:48 → CMPTRNSPT 17:57 → ENPENDDIS 09-22 10:17 → 2NA 09-22 11:50
PROVIDERS: Physician Assistant; Physician Assistant Surgical; ADMIT Orthopaedic Surgery Orthopaedic Surgery of the Spine
PROC: 01NB0ZZ Release Lumbar Nerve, Open Approach (ICD-10-PCS; principal; 2016-09-19)
PROC: 0SG0071 Fusion of Lumbar Vertebral Joint with Autologous Tissue Substitute, Posterior Approach, Posterior Column, Open Approach (ICD-10-PCS; principal; 2016-09-19)
PROC: 0SG00AJ Fusion of Lumbar Vertebral Joint with Interbody Fusion Device, Posterior Approach, Anterior Column, Open Approach (ICD-10-PCS; principal; 2016-09-19)
PROC: 0SB20ZZ Excision of Lumbar Vertebral Disc, Open Approach (ICD-10-PCS; principal; 2016-09-19)
PROC: 4A11X4G Monitoring of Peripheral Nervous Electrical Activity, Intraoperative, External Approach (ICD-10-PCS; principal; 2016-09-19)
DX: M51.16 Intervertebral disc disorders with radiculopathy, lumbar region (principal); R56.9 Unspecified convulsions; G96.19 Other disorders of meninges, not elsewhere classified; I48.2 Chronic atrial fibrillation; M48.06 Spinal stenosis, lumbar region; M53.2X6 Spinal instabilities, lumbar region; R01.0 Benign and innocent cardiac murmurs; I10 Essential (primary) hypertension; E78.00 Pure hypercholesterolemia, unspecified; Z87.891 Personal history of nicotine dependence
CPT/HCPCS: 2NAP; 36415; 72100; 82436; 87086; 88304; 93005; 93010; 97116-GO; 97162-GP; 97530-GO; C1713; J0131; J0690; J1100; J1170; J1644; J1885; J2405; J3360; J3370; J7042